=== PATIENT | male | born 1950 | race Caucasian/White ===

== ENCOUNTER 2019-10-29 11:53 | Emergency (ER) | payer MEDICARE, OTHER ==
--- NOTE | 2019-10-29 12:04 | EDM.PDOC ---
ED HPI GENERAL MEDICAL PROBLEM - General Stated Complaint: COPD SOB Time Seen by Provider: 10/29/19 12:03 Source of Information: Reports: Patient History Limitations: Reports: No Limitations - History of Present Illness INITIAL COMMENTS - FREE TEXT/NARRATIVE: 69-year-old male who reports onset with some shortness of breath and increased wheezing over the past 2-3 days. Yesterday, he developed generalized malaise with nausea and dry heaving and then developed diarrhea. He has had diarrhea 6- 7 today. He feels weak and short of breath today. He also continues to have generalized abdominal cramping associated with this diarrhea and dry heaving. He reports that several of his grandchildren had vomiting and diarrhea and he was exposed to them over the past few days. He rates the pain in his stomach as a 5/10. It is crampy and waxes and wanes. Nothing really seems to make it better. The pain is somewhat worse with palpation. He really has had no appetite and he has had decreased by mouth intake over the past 24 hours. He has had subjective fever with chills. He presents via private vehicle. No other associated signs or symptoms. There are no other modifying factors. 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 Treatments Generalized Pain Score (Numeric/FACES): 4 - Related Data Allergies Allergy/AdvReac Type Severity Reaction Status Date / Time No Known Allergies Allergy Verified 10/29/19 12:19 Home Meds: Home Meds Aspirin [[place] Aspirin] 81 mg PO DAILY 05/29/15 [History] Fenofibrate Nanocrystallized [Tricor] 134 mg PO DAILY 05/29/15 [History] Fish Oil/Heath-3 Fatty Acids [Fish Oil 1,000 MG] 1 each PO DAILY 05/29/15 [ History] Lisinopril [Prinivil] 20 mg PO DAILY 05/29/15 [History] Loratadine [Claritin] 10 mg PO DAILY 05/29/15 [History] Omeprazole [Prilosec] 20 mg PO DAILY 05/29/15 [History] amLODIPine [Norvasc] 5 mg PO DAILY 05/29/15 [History] atorvaSTATin [Lipitor] 40 mg PO BEDTIME 05/29/15 [History] rOPINIRole [Requip] 1 mg PO BEDTIME 05/29/15 [History] Albuterol/Ipratropium [DuoNeb 3.0-0.5 MG/3 ML] 1 ampule INH QID 09/09/16 [ History] Carvedilol [Coreg] 12.5 mg PO BID 09/09/16 [History] B-Complex with Vitamin C [Super B Complex-Vitamin C] 1 each PO DAILY 10/21/16 [ History] Clopidogrel [Plavix] 75 mg PO DAILY 10/21/16 [History] Melatonin 3 mg PO BEDTIME PRN 10/21/16 [History] Pioglitazone [Actos] 30 mg PO DAILY 10/21/16 [History] buPROPion HCl [Wellbutrin SR] 150 mg PO BID 10/21/16 [History] metFORMIN HCl [Metformin ER Osmotic] 1,000 mg PO DAILY 10/22/16 [History] Ciprofloxacin HCl [Cipro] 500 mg PO BID 3 Days tablet 06/01/17 [Rx] Ondansetron HCl [Zofran] 4 mg PO ASDIRECTED #6 tablet 06/01/17 [Rx] Past Medical History HEENT History: Reports: Hard of Hearing, Impaired Vision Cardiovascular History: Reports: High Cholesterol, Hypertension, [place], Stents Respiratory History: Reports: COPD, Sleep Apnea Gastrointestinal History: Reports: GERD Genitourinary History: Reports: BPH Musculoskeletal History: Reports: Back Pain, Chronic Neurological History: Reports: Migraines, Other (See Below) (Restless leg syndrome) Psychiatric History: Reports: Depression Endocrine/Metabolic History: Reports: Diabetes, Type II - Infectious Disease History Infectious Disease History: Reports: Rheumatic Fever - Past Surgical History HEENT Surgical History: Reports: Tonsillectomy Other HEENT Surgeries/Procedures: Broken jaw Cardiovascular Surgical History: Reports: Coronary Artery Stent, Percutaneous Transluminal Angioplasty GI Surgical History: Reports: Cholecystectomy Musculoskeletal Surgical History: Reports: Arthroscopic Knee (4 knee arthroscopies), Hip Replacement (Right), Shoulder Surgery (Left) Social & Family History - Family History Psychiatric: Reports: Depression - Tobacco Use Smoking Status *Q: Current Every Day Smoker - Caffeine Use Caffeine Use: Reports: Coffee Other Caffeine Use: pot to pot and half Caffeine Use Comment: verbalizes a whole lot more than should be - Alcohol Use Alcohol Use History: No - Living Situation & Occupation Occupation: Retired ED ROS GENERAL - Review of Systems Review Of Systems: See Below Constitutional: Reports: Fever, Chills, Malaise, Weakness, Fatigue HEENT: Reports: Other (Nasal congestion) Respiratory: Reports: Shortness of Breath, Wheezing, Cough Cardiovascular: Reports: No Symptoms GI/Abdominal: Reports: Abdominal Pain, Diarrhea, Nausea, Vomiting : Reports: No Symptoms Musculoskeletal: Reports: Other (Body aches throughout) Skin: Reports: No Symptoms Neurological: Reports: No Symptoms Hematologic/Lymphatic: Reports: No Symptoms Immunologic: Reports: No Symptoms ED EXAM, GENERAL - Physical Exam Exam: See Below Exam Limited By: No Limitations General Appearance: Alert, WD/WN, Moderate Distress (Mild to) Eye Exam: Bilateral Eye: EOMI, Normal Inspection Ears: Normal External Exam, Hearing Grossly Normal Ear Exam: Bilateral Ear: Auricle Normal Nose: No Blood, Nasal Drainage, Clear Rhinorrhea Throat/Mouth: Normal Voice, No Airway Compromise, Other (Somewhat dry mucous membranes) Head: Atraumatic, Normocephalic Neck: Normal Inspection, Supple, Non-Tender, Full Range of Motion Respiratory/Chest: No Accessory Muscle Use, Chest Non-Tender, Rhonchi Cardiovascular: Normal Peripheral Pulses, No Edema, No Murmur, Irregularly Irregular Peripheral Pulses: 0: Femoral (R), 2+: Radial (L), Radial (R), Dorsalis Pedis (L ), Dorsalis Pedis (R) GI/Abdominal: Normal Bowel Sounds, Soft, Non-Tender, No Distention (Male) Exam: No Hernia Back Exam: Normal Inspection, Full Range of Motion Extremities: Normal Inspection, Normal Range of Motion, Non-Tender, No Pedal Edema, Normal Capillary Refill Neurological: Alert, Oriented, CN II-XII Intact, Normal Cognition, No Motor/ Sensory Deficits Skin Exam: Warm, Dry, Intact, Normal Color, No Rash EKG INTERPRETATION EKG Date: 10/29/19 Time: 12:06 Rhythm: A-Fib Rate (Beats/Min): 102 [place]: LAD-Left [place] Deviation P-Wave: Absent QRS: Normal ST-T: Normal QT: Normal Comparison: Change From Previous EKG (Atrial fibrillation and left axis deviation are new compared to an EKG performed on 10/22/2016.) Course - Vital Signs Last Recorded V/S: Last Vital Signs Temp 37.7 C 10/29/19 11:53 Pulse 110 H 10/29/19 11:53 Resp 22 H 10/29/19 11:53 BP 140/80 10/29/19 11:53 Pulse Ox 98 10/29/19 11:53 - Orders/Labs/Meds Orders: Active Orders 24 hr Category Date Time Status EKG Documentation Completion [RC] ASDIRECTED Care 10/29/19 12:52 Active RT Aerosol Therapy [RC] ASDIRECTED Care 10/29/19 12:53 Active Chest 2V [CR] Stat Exams 10/29/19 12:51 Taken CULTURE BLOOD [BC] Urgent Lab 10/29/19 14:55 Received CULTURE BLOOD [BC] Urgent Lab 10/29/19 17:00 Received Sodium Chloride 0.9% [Normal Saline] 1,000 ml Med 10/29/19 14:45 Active IV ASDIRECTED Sodium Chloride 0.9% [Saline Flush] Med 10/29/19 12:51 Active 10 ml FLUSH ASDIRECTED PRN Blood Culture x2 Reflex Set [OM.PC] Urgent Oth 10/29/19 16:32 Ordered Peripheral IV Insertion Adult [OM.PC] Routine Oth 10/29/19 12:51 Ordered EKG 12 Lead [EK] Routine Ther 10/29/19 12:51 Ordered Medication Orders Sodium Chloride (Normal Saline) 1,000 mls @ 999 mls/hr IV ASDIRECTED LAURA Last Infusion: 10/29/19 15:00 Dose: 125 mls/hr Admin: 10/29/19 14:32 Dose: 999 mls/hr Sodium Chloride (Saline Flush) 10 ml FLUSH ASDIRECTED PRN PRN Reason: Keep Vein Open Labs: Laboratory Tests 10/29/19 10/29/19 10/29/19 Range/Units 13:05 13:05 13:05 WBC 10.6 (4.5-12.0) X10-3/uL RBC 5.17 (4.30-5.75) x10(6)uL Hgb 14.7 (13.5-17.8) g/dL Hct 44.2 (30.0-51.3) % MCV 85.5 (80-96) fL MCH 28.5 (27.7-33.6) pg MCHC 33.3 (32.2-35.4) g/dL RDW 13.5 (11.5-15.5) % Plt Count 216 (125-369) X10(3)uL MPV 9.1 (7.4-10.4) fL Neut % (Auto) 76.3 (46-82) % Lymph % (Auto) 8.9 L (13-37) % [place] % (Auto) 12.2 H (4-12) % Eos % (Auto) 0 L (1.0-5.0) % Baso % (Auto) 2 (0-2) % Neut # (Auto) 8.2 (1.6-8.3) # Lymph # (Auto) 0.9 (0.6-5.0) # [place] # (Auto) 1.3 (0.0-1.3) # Eos # (Auto) 0.0 (0.0-0.8) # Baso # (Auto) 0.2 (0.0-0.2) # PT 10.6 (8.7-11.1) INR 1.09 (0.89-1.13) APTT 24.6 (24.4-33.2) SECONDS POC VBG pH (7.31-7.41) POC VBG pCO2 (41-51) mmHG POC VBG HCO3 (23-28) mmol/L POC VBG Total CO2 (24-29) mmol/L POC VBG Base Excess (-2-3) mmol/L Sodium 138 (135-145) mmol/L Potassium 4.0 (3.5-5.3) mmol/L Chloride 103 (100-110) mmol/L Carbon Dioxide 23 (21-32) mmol/L BUN 26 H (7-18) mg/dL Creatinine 1.6 H (0.70-1.30) mg/dL Est Cr Clr Drug Dosing TNP Estimated GFR (MDRD) 43 L (>60) BUN/Creatinine Ratio 16.3 (9-20) Glucose 170 H (80-116) mg/dL Lactic Acid (0.4-2.2) mmol/L Calcium 9.2 (8.6-10.2) mg/dL Magnesium (1.8-2.5) mg/dL Total Bilirubin 0.6 (0.1-1.3) mg/dL AST 19 (5-25) IU/L ALT 22 (12-36) U/L Alkaline Phosphatase 61 (56-112) IU/L Troponin I (<0.017-0.056) ng/mL C-Reactive Protein (0.5-0.9) mg/dL NT-Pro-B Natriuret Pep (<=125) pg/mL Total Protein 7.1 (6.0-8.0) g/dL Albumin 3.8 (3.2-4.6) g/dL Globulin 3.3 g/dL Albumin/Globulin Ratio 1.2 10/29/19 10/29/19 10/29/19 Range/Units 13:05 13:11 13:31 WBC (4.5-12.0) X10-3/uL RBC (4.30-5.75) x10(6)uL Hgb (13.5-17.8) g/dL Hct (30.0-51.3) % MCV (80-96) fL MCH (27.7-33.6) pg MCHC (32.2-35.4) g/dL RDW (11.5-15.5) % Plt Count (125-369) X10(3)uL MPV (7.4-10.4) fL Neut % (Auto) (46-82) % Lymph % (Auto) (13-37) % [place] % (Auto) (4-12) % Eos % (Auto) (1.0-5.0) % Baso % (Auto) (0-2) % Neut # (Auto) (1.6-8.3) # Lymph # (Auto) (0.6-5.0) # [place] # (Auto) (0.0-1.3) # Eos # (Auto) (0.0-0.8) # Baso # (Auto) (0.0-0.2) # PT (8.7-11.1) INR (0.89-1.13) APTT (24.4-33.2) SECONDS POC VBG pH 7.41 (7.31-7.41) POC VBG pCO2 33.0 L (41-51) mmHG POC VBG HCO3 21.0 L (23-28) mmol/L POC VBG Total CO2 22 L (24-29) mmol/L POC VBG Base Excess -4 L (-2-3) mmol/L Sodium (135-145) mmol/L Potassium (3.5-5.3) mmol/L Chloride (100-110) mmol/L Carbon Dioxide (21-32) mmol/L BUN (7-18) mg/dL Creatinine (0.70-1.30) mg/dL Est Cr Clr Drug Dosing Estimated GFR (MDRD) (>60) BUN/Creatinine Ratio (9-20) Glucose (80-116) mg/dL Lactic Acid (0.4-2.2) mmol/L Calcium (8.6-10.2) mg/dL Magnesium 1.7 L (1.8-2.5) mg/dL Total Bilirubin (0.1-1.3) mg/dL AST (5-25) IU/L ALT (12-36) U/L Alkaline Phosphatase (56-112) IU/L Troponin I < 0.017 L (<0.017-0.056) ng/mL C-Reactive Protein 2.3 H (0.5-0.9) mg/dL NT-Pro-B Natriuret Pep 1368 H* (<=125) pg/mL Total Protein (6.0-8.0) g/dL Albumin (3.2-4.6) g/dL Globulin g/dL Albumin/Globulin Ratio 10/29/ Range/Units 13:31 WBC (4.5-12.0) X10-3/uL RBC (4.30-5.75) x10(6)uL Hgb (13.5-17.8) g/dL Hct (30.0-51.3) % MCV (80-96) fL MCH (27.7-33.6) pg MCHC (32.2-35.4) g/dL RDW (11.5-15.5) % Plt Count (125-369) X10(3)uL MPV (7.4-10.4) fL Neut % (Auto) (46-82) % Lymph % (Auto) (13-37) % [place] % (Auto) (4-12) % Eos % (Auto) (1.0-5.0) % Baso % (Auto) (0-2) % Neut # (Auto) (1.6-8.3) # Lymph # (Auto) (0.6-5.0) # [place] # (Auto) (0.0-1.3) # Eos # (Auto) (0.0-0.8) # Baso # (Auto) (0.0-0.2) # PT (8.7-11.1) INR (0.89-1.13) APTT (24.4-33.2) SECONDS POC VBG pH (7.31-7.41) POC VBG pCO2 (41-51) mmHG POC VBG HCO3 (23-28) mmol/L POC VBG Total CO2 (24-29) mmol/L POC VBG Base Excess (-2-3) mmol/L Sodium (135-145) mmol/L Potassium (3.5-5.3) mmol/L Chloride (100-110) mmol/L Carbon Dioxide (21-32) mmol/L BUN (7-18) mg/dL Creatinine (0.70-1.30) mg/dL Est Cr Clr Drug Dosing Estimated GFR (MDRD) (>60) BUN/Creatinine Ratio (9-20) Glucose (80-116) mg/dL Lactic Acid 1.0 (0.4-2.2) mmol/L Calcium (8.6-10.2) mg/dL Magnesium (1.8-2.5) mg/dL Total Bilirubin (0.1-1.3) mg/dL AST (5-25) IU/L ALT (12-36) U/L Alkaline Phosphatase (56-112) IU/L Troponin I (<0.017-0.056) ng/mL C-Reactive Protein (0.5-0.9) mg/dL NT-Pro-B Natriuret Pep (<=125) pg/mL Total Protein (6.0-8.0) g/dL Albumin (3.2-4.6) g/dL Globulin g/dL Albumin/Globulin Ratio Meds: Medications Generic Name Dose Route Start Last Admin Trade Name Freq PRN Reason Stop Dose Admin Sodium Chloride 1,000 mls @ 999 mls/hr 10/29/19 14:45 10/29/19 15:00 Normal Saline IV 125 mls/hr ASDIRECTED LAURA Infusion Sodium Chloride 10 ml 10/29/19 12:51 Saline Flush FLUSH ASDIRECTED PRN Keep Vein Open Discontinued Medications Generic Name Dose Route Start Last Admin Trade Name Freq PRN Reason Stop Dose Admin Acetaminophen 1,000 mg 10/29/19 12:58 10/29/19 13:30 Tylenol Extra Strength PO 10/29/19 12:59 1,000 mg ONETIME ONE Administration Albuterol/Ipratropium 3 ml 10/29/19 12:53 10/29/19 13:01 Duoneb 3.0-0.5 Mg/3 Ml NEB 10/29/19 12:54 3 ml ONETIME ONE Administration Ceftriaxone Sodium 1 gm 10/29/19 16:33 10/29/19 17:17 Rocephin IVPUSH 10/29/19 16:34 1 gm ONETIME ONE Administration Gabapentin 600 mg 10/29/19 17:14 10/29/19 17:30 Neurontin PO 10/29/19 17:15 600 mg ONETIME ONE Administration Magnesium Sulfate 2 gm/ Premix 50 mls @ 150 mls/hr 10/29/19 14:12 10/29/19 14 :33 IV 10/29/19 14:31 150 mls/hr ONETIME ONE Administration Azithromycin 500 mg/ Sodium 250 mls @ 250 mls/hr 10/29/19 16:32 10/29/19 17: 17 Chloride IV 10/29/19 17:31 250 mls/hr ONETIME ONE Administration Methylprednisolone Sodium Succinate 125 mg 10/29/19 14:12 10/29/19 14:34 Solu-Medrol IVPUSH 10/29/19 14:13 125 mg ONETIME ONE Administration Ondansetron HCl 4 mg 10/29/19 13:00 10/29/19 13:30 Zofran IVPUSH 10/29/19 13:01 4 mg ONETIME ONE Administration - Radiology Interpretation Free Text/Narrative:: Chest x-ray PA and lateral shows evidence of COPD but no infiltrate no evidence of CHF. - Re-Assessments/Exams Free Text/Narrative Re-Assessment/Exam: 10/29/19 14:45: His blood pressure is in the 80-90 systolic range. His heart rate is in the 100-110 range and is now in sinus rhythm. He is somewhat improved , breathing-krishnamurthy, after the DuoNeb treatment. His abdominal pain/cramping has improved after Zofran was given. He has had no further diarrhea while here. There has been no further vomiting. He did have an episode of ventricular tachycardia that lasted for about 5-10 seconds in which the patient was completely asymptomatic without chest pain, dizziness, weakness or shortness of breath increased. His proBNP was somewhat elevated but he actually appears to be volume depleted/dehydrated and I think he will need IV fluid hydration. He appears to have exacerbation of his COPD. He also has had paroxysmal atrial fibrillation. In addition he appears to be dehydrated related to what I suspect is a gastroenteritis that is viral in etiology. With all of this, I think he will need admission for the fluid hydration, IV antibiotics, frequent nebulizer treatments, IV steroids and close cardiac monitoring. I discussed this with the patient and his daughter and they would him to be transferred to [facility] in [place]. There are no cardiology specially services available here at [facility] and I think that the patient may need these cardiology specialty services and cardiology consult and transfer would be appropriate in this case. I will call and discussed the patient's case with the doctors at [facility] in [place]. 10/29/19 15:15: Initially I had made contact with [facility] in [place] and I was awaiting talking to the hospitalist at [facility] [place] and I had to hang up at this time secondary to an incoming critical patient. 10/29/19 16:25: I discussed the patient's case with Dr. Waters, hospitalist at [facility] in [place], and he has agreed to accept the patient in transfer. He asked that I have 2 blood cultures obtained and that I initiate therapy with Rocephin and Zithromax IV. That is being ordered and the patient will be transferred via ambulance to [facility] in [place] for direct admission. The patient and his family are in agreement with this plan. Departure - Departure Time of Disposition: 17:00 Disposition: DC/Tfer to Acute Hospital 02 Condition: Fair Clinical Impression: COPD with acute exacerbation, Paroxysmal atrial fibrillation, Dehydration, moderate, Vomiting and diarrhea, Ventricular tachycardia (paroxysmal) - Discharge Information Referrals: Xu Duggan PA-C [Primary Care Provider] - Sepsis Event Note - Focused Exam Vital Signs: Vital Signs Temp Pulse Resp BP Pulse Ox 10/29/19 11:53 37.7 C 110 H 22 H 140/80 98 Date Exam was Performed: 10/29/19 Time Exam was Performed: 22:40 - My Orders Last 24 Hours: My Active Orders 10/29/19 12:51 Chest 2V [CR] Stat Sodium Chloride 0.9% [Saline Flush] 10 ml FLUSH ASDIRECTED PRN Peripheral IV Insertion Adult [OM.PC] Routine EKG 12 Lead [EK] Routine 10/29/19 12:52 EKG Documentation Completion [RC] ASDIRECTED 10/29/19 12:53 RT Aerosol Therapy [RC] ASDIRECTED 10/29/19 14:45 Sodium Chloride 0.9% [Normal Saline] 1,000 ml IV ASDIRECTED 10/29/19 14:55 CULTURE BLOOD [BC] Urgent 10/29/19 16:32 Blood Culture x2 Reflex Set [OM.PC] Urgent 10/29/19 17:00 CULTURE BLOOD [BC] Urgent - Assessment/Plan Last 24 Hours: My Active Orders 10/29/19 12:51 Chest 2V [CR] Stat Sodium Chloride 0.9% [Saline Flush] 10 ml FLUSH ASDIRECTED PRN Peripheral IV Insertion Adult [OM.PC] Routine EKG 12 Lead [EK] Routine 10/29/19 12:52 EKG Documentation Completion [RC] ASDIRECTED 10/29/19 12:53 RT Aerosol Therapy [RC] ASDIRECTED 10/29/19 14:45 Sodium Chloride 0.9% [Normal Saline] 1,000 ml IV ASDIRECTED 10/29/19 14:55 CULTURE BLOOD [BC] Urgent 10/29/19 16:32 Blood Culture x2 Reflex Set [OM.PC] Urgent 10/29/19 17:00 CULTURE BLOOD [BC] Urgent
[2019-10-29] MEDS ORDERED: Sodium Chloride 0.9% 10 ML Syringe FLUSH PRN (12:51)
[2019-10-29] MEDS ORDERED: Albuterol/Ipratropium 3.0-0.5 MG/3 ML Neb Soln NEB ONE (12:53)
[2019-10-29] MEDS ORDERED: Acetaminophen 500 MG Tab PO ONE (12:58)
[2019-10-29] MEDS ORDERED: Ondansetron 4 MG/2 ML SDV IVPUSH ONE (13:00)
[2019-10-29 14:06] VITALS: BP 140/80
[2019-10-29] MEDS ORDERED: Magnesium Sulfate/Water 2 GM in Premix Bag 1 BAG IV ONE (14:12)
[2019-10-29] MEDS ORDERED: methylPREDNISolone Sodium Succinate 125 MG/2 ML SDV IVPUSH ONE (14:12)
[2019-10-29] MEDS ORDERED: Sodium Chloride 0.9% 1,000 ML IV SCH (14:45)
[2019-10-29] MEDS ORDERED: Azithromycin 500 MG in Sodium Chloride 0.9% 250 ML IV ONE (16:32)
[2019-10-29] MEDS ORDERED: cefTRIAXone 1 GM Vial IVPUSH ONE (16:33)
[2019-10-29] MEDS ORDERED: Gabapentin 300 MG Cap PO ONE (17:14)
[2019-10-30 00:14] VITALS: PULSE 88
== END 2019-10-29 17:35 ==
LOC: FB.ED 11:53
DX: J44.1 Chronic obstructive pulmonary disease with (acute) exacerbation (principal); I48.0 Paroxysmal atrial fibrillation; I47.2 Ventricular tachycardia; E86.0 Dehydration; R11.10 Vomiting, unspecified; R19.7 Diarrhea, unspecified; I10 Essential (primary) hypertension; F17.210 Nicotine dependence, cigarettes, uncomplicated; I25.2 Old myocardial infarction; Z79.899 Other long term (current) drug therapy; E11.9 Type 2 diabetes mellitus without complications; Z79.82 Long term (current) use of aspirin
CPT/HCPCS: 36415; 71046; 80053; 82803; 83605; 83735; 83880; 84484; 85025; 85610; 85730; 86140; 87040; 87804; 87804-59; 93005; 93010; 94640; 96361; 96365; 96375; 99285; 99285-25; A9270-GY; J0456; J0696; J2405; J2930; J3475; J7030; J7050; J7620-GY

== ENCOUNTER 2021-12-14 19:50 | Emergency (ER) | payer MEDICARE, OTHER ==
[2021-12-14] MEDS ORDERED: Albuterol/Ipratropium 3.0-0.5 MG/3 ML Neb Soln NEB ONE (20:15)
[2021-12-14] MEDS ORDERED: Sodium Chloride 0.9% 10 ML Syringe FLUSH PRN (20:15)
[2021-12-14] MEDS ORDERED: methylPREDNISolone Sodium Succinate 125 MG/2 ML SDV IVPUSH STA (20:16)
[2021-12-14 20:38] VITALS: BP 140/73; PULSE 82
[2021-12-14] MEDS ORDERED: Azithromycin 500 MG Tab PO ONE (22:04)
== END 2021-12-14 22:22 | disposition home or self-care (01) ==
LOC: FB.ED 19:50
DX: J44.9 Chronic obstructive pulmonary disease, unspecified (principal); I48.91 Unspecified atrial fibrillation; E78.00 Pure hypercholesterolemia, unspecified; I10 Essential (primary) hypertension; I25.2 Old myocardial infarction; E11.40 Type 2 diabetes mellitus with diabetic neuropathy, unspecified; N40.0 Benign prostatic hyperplasia without lower urinary tract symptoms; E66.9 Obesity, unspecified; Z68.39 Body mass index [BMI] 39.0-39.9, adult; Z95.5 Presence of coronary angioplasty implant and graft; Z79.4 Long term (current) use of insulin; Z79.899 Other long term (current) drug therapy; Z72.0 Tobacco use; Z79.82 Long term (current) use of aspirin; Z79.01 Long term (current) use of anticoagulants; Z20.822 Contact with and (suspected) exposure to COVID-19
CPT/HCPCS: 36415; 71045; 80053; 83880; 84484; 85025; 93005; 94640; 96374; 99285; A9270; J2930; U0002; J7620-GY

== ENCOUNTER 2023-03-05 21:59 | Observation (INO) | payer MEDICARE, OTHER ==
[2023-03-05] MEDS ORDERED: Sodium Chloride 0.9% 10 ML Syringe FLUSH PRN (22:26)
[2023-03-05 23:01] LABS: ESTIMATED GFR 40 mL/min (>60)
[2023-03-05] MEDS ORDERED: methylPREDNISolone Sodium Succinate 125 MG/2 ML SDV IVPUSH ONE (23:04)
[2023-03-05] MEDS ORDERED: Albuterol/Ipratropium 3.0-0.5 MG/3 ML Neb Soln NEB ONE (23:04)
[2023-03-05 23:08] LABS: BASE EXCESS VENOUS,POC 1 mmol/L (-2 - 3+); PCO2 VENOUS,POC 42 mmHg (41-51)
[2023-03-05] MEDS ORDERED: Magnesium Sulfate/Water 2 GM in Premix Bag 1 BAG IV ONE (23:27)
[2023-03-05 23:50] LABS: CORONAVIRUS COVID-19 NAA NEGATIVE (NEGATIVE)
[2023-03-06] MEDS ORDERED: Ondansetron 4 MG/2 ML SDV IV PRN (00:39)
[2023-03-06] MEDS ORDERED: Acetaminophen 325 MG Tab PO PRN (00:39)
[2023-03-06] MEDS ORDERED: Albuterol 0.083% 2.5 MG/3 ML Neb Soln NEB PRN (00:47)
[2023-03-06] MEDS ORDERED: Furosemide 40 MG/4 ML VIAL IVPUSH ONE (00:52)
[2023-03-06] MEDS ORDERED: 50% Dextrose in Water 50 ML Syringe IVPUSH PRN (00:55)
[2023-03-06] MEDS ORDERED: Glucagon,Human Recombinant 1 MG Vial IM PRN (00:55)
[2023-03-06] MEDS ORDERED: Apixaban 5 MG Tab PO ONE (01:00)
[2023-03-06] MEDS ORDERED: cefTRIAXone 1 GM Vial IVPUSH SCH (01:00)
[2023-03-06] MEDS ORDERED: Doxycycline 100 MG in Sodium Chloride 0.9% 100 ML IV SCH ×2 (01:00→14:00)
[2023-03-06] MEDS: Nicotine 14 MG/24 Hr Patch TRDERM SCH ×2 (01:51→08:22)
[2023-03-06] MEDS: Sodium Chloride 0.9% 10 ML Syringe FLUSH PRN ×2 (01:56→08:34)
[2023-03-06] MEDS: Apixaban 5 MG Tab **OWN MED PO SCH ×2 (02:00→08:27)
[2023-03-06] MEDS: Pantoprazole 40 MG Vial IVPUSH SCH ×2 (02:05→08:27)
[2023-03-06] MEDS: Albuterol/Ipratropium 3.0-0.5 MG/3 ML Neb Soln NEB SCH ×2 (06:00→11:21)
[2023-03-06] MEDS ORDERED: Insulin Lispro 100 Unit/ML 3 ML KwikPen SUBCUT ONE (08:17)
[2023-03-06] MEDS: Insulin Lispro 100 Unit/ML 3 ML KwikPen SUBCUT SCH ×2 (08:20→11:59)
[2023-03-06] MEDS ORDERED: methylPREDNISolone Sodium Succinate 40 MG/1 ML SDV IVPUSH SCH (11:30)
[2023-03-06 13:04] VITALS: BP 105/49; PULSE 105
== END 2023-03-06 14:00 | disposition home or self-care (01) ==
LOC: FB.ED 21:59 → FB.MS 03-06 00:33
PROVIDERS: ADMIT Emergency Medicine; ATTEND Student in an Organized Health Care Education/Training Program
DX: J44.1 Chronic obstructive pulmonary disease with (acute) exacerbation (principal); I48.0 Paroxysmal atrial fibrillation; E11.22 Type 2 diabetes mellitus with diabetic chronic kidney disease; I13.0 Hypertensive heart and chronic kidney disease with heart failure and stage 1 through stage 4 chronic kidney disease, or unspecified chronic kidney disease; N18.31 Chronic kidney disease, stage 3a; I50.9 Heart failure, unspecified; I47.20 Ventricular tachycardia, unspecified; M54.9 Dorsalgia, unspecified; G47.33 Obstructive sleep apnea (adult) (pediatric); G89.29 Other chronic pain; M19.90 Unspecified osteoarthritis, unspecified site; E66.01 Morbid (severe) obesity due to excess calories; Z20.822 Contact with and (suspected) exposure to COVID-19; Z79.4 Long term (current) use of insulin; Z79.82 Long term (current) use of aspirin; Z79.899 Other long term (current) drug therapy; Z68.41 Body mass index [BMI] 40.0-44.9, adult
CPT/HCPCS: 0240U; 36415; 71045; 80053; 82947; 83605; 83735; 83880; 84484; 85025; 86140; 87040; 93005; 93010; 94640; 96365; 96366; 96367; 96375; 96376; 99222; 99285; 99285-25; A9270-GY; C9113; G0378; J0696; J1815; J1940; J2920; J2930; J3475; J3490; J7620

== ENCOUNTER 2023-04-02 22:59 | Emergency (ER) | payer MEDICARE, OTHER ==
[2023-04-02 23:13] VITALS: BP 130/52; PULSE 72
== END 2023-04-02 23:23 | disposition home or self-care (01) ==
LOC: FB.ED 22:59
DX: S05.01XA Injury of conjunctiva and corneal abrasion without foreign body, right eye, initial encounter (principal); I48.91 Unspecified atrial fibrillation; I11.0 Hypertensive heart disease with heart failure; I50.9 Heart failure, unspecified; E78.00 Pure hypercholesterolemia, unspecified; J44.9 Chronic obstructive pulmonary disease, unspecified; I25.2 Old myocardial infarction; E11.9 Type 2 diabetes mellitus without complications; K21.9 Gastro-esophageal reflux disease without esophagitis; E66.9 Obesity, unspecified; Z68.42 Body mass index [BMI] 45.0-49.9, adult; Z79.82 Long term (current) use of aspirin; Z79.899 Other long term (current) drug therapy; W22.8XXA Striking against or struck by other objects, initial encounter
CPT/HCPCS: 99283

== ENCOUNTER 2023-06-05 03:58 | Emergency (ER) | payer MEDICARE, OTHER ==
[2023-06-05] MEDS ORDERED: Sodium Chloride 0.9% 10 ML Syringe FLUSH PRN (04:17)
[2023-06-05 04:45] LABS: BASE EXCESS VENOUS,POC 5 mmol/L (-2 - 3+); PCO2 VENOUS,POC 62 mmHg (41-51); PH VENOUS,POC 7.33 pH Units (7.32-7.43)
[2023-06-05 05:04] LABS: BASOPHILS ABSOLUTE AUTO 0.1 x10-3/uL (0.0-0.3); BASOPHILS PERCENT AUTO 1.3 % (0.3-3.8); EOSINOPHILS ABSOLUTE AUTO 0.3 x10-3/uL (0.0-0.6); EOSINOPHILS PERCENT AUTO 2.9 % (0.1-6.8); HEMATOCRIT 37.2 % (38.3-50.1); HEMOGLOBIN 12.3 g/dL (12.9-17.7); LYMPHOCYTES ABSOLUTE AUTO 1.7 x10-3/uL (0.5-4.5); LYMPHOCYTES PERCENT AUTO 18.7 % (15.8-45.3); MEAN CORPUSCULAR HEMOGLOBIN 28.8 pg (27.0-33.3); MEAN CORPUSCULAR HGB CONC 33.1 g/dL (28.7-35.3); MEAN CORPUSCULAR VOLUME 87.1 fL (80.8-98.7); MEAN PLATELET VOLUME 8.8 fL (6.7-11.0); MONOCYTES ABSOLUTE AUTO 1.2 x10-3/uL (0.0-1.2); MONOCYTES PERCENT AUTO 12.7 % (5.5-15.2); NEUTROPHILS ABSOLUTE AUTO 5.9 x10-3/uL (1.7-6.9); NEUTROPHILS PERCENT AUTO 64.4 % (40.3-71.8); PLATELET COUNT,PLT 208 x10(3)uL (117-477); RED BLOOD CELL COUNT 4.27 x10(6)uL (3.90-5.90); RED CELL DISTRIBUTION WIDTH 15.4 % (12.4-15.0); WHITE BLOOD CELL COUNT,WBC 9.1 x10-3/uL (3.2-10.1)
[2023-06-05 05:07] LABS: A/G RATIO 0.9; ALANINE AMINOTRANSFERASE,ALT 21 U/L (12-36); ALBUMIN 3.3 g/dL (3.2-4.6); ALKALINE PHOSPHATASE 52 IU/L (56-112); ASPARTATE AMNIOTRANSFERASE,AST 18 IU/L (5-25); BILIRUBIN TOTAL 0.3 mg/dL (0.1-1.3); BLOOD UREA NITROGEN,BUN 24 mg/dL (7-18); CARBON DIOXIDE,CO2 33 mmol/L (21-32); CHLORIDE,CL 102 mmol/L (100-110); GLUCOSE RANDOM 118 mg/dL (80-116); POTASSIUM,K 4.2 mmol/L (3.5-5.3); PROTEIN TOTAL,TP 6.9 g/dL (6.0-8.0); SODIUM,NA 141 mmol/L (135-145)
[2023-06-05 05:10] LABS: BUN/CREATININE RATIO 12.6 (9-20); CREATININE 1.9 mg/dL (0.70-1.30); ESTIMATED GFR 37 mL/min (>60)
[2023-06-05 05:11] LABS: LACTIC ACID 0.7 mmol/L (0.4-2.0); TROPONIN I 9.4 pg/mL (4.0-60.3)
[2023-06-05 05:16] LABS: INR 1.04 (1.00-1.24); PROTHROMBIN TIME 10.7 sec (9.0-11.1); PTT,PARTIAL THROMBOPLSTIN TIME 27.7 SECONDS (24.4-33.2)
[2023-06-05] MEDS ORDERED: methylPREDNISolone Sodium Succinate 125 MG/2 ML SDV IVPUSH STA (05:29)
[2023-06-05] MEDS ORDERED: Albuterol/Ipratropium 3.0-0.5 MG/3 ML Neb Soln NEB STA (05:29)
[2023-06-05 06:50] VITALS: BP 146/78; PULSE 64
== END 2023-06-05 06:40 | disposition home or self-care (01) ==
LOC: FB.ED 03:58
DX: J44.1 Chronic obstructive pulmonary disease with (acute) exacerbation (principal); L03.115 Cellulitis of right lower limb; I48.91 Unspecified atrial fibrillation; I11.0 Hypertensive heart disease with heart failure; I50.9 Heart failure, unspecified; I25.2 Old myocardial infarction; K21.9 Gastro-esophageal reflux disease without esophagitis; E78.00 Pure hypercholesterolemia, unspecified; M19.90 Unspecified osteoarthritis, unspecified site; E11.40 Type 2 diabetes mellitus with diabetic neuropathy, unspecified; E66.9 Obesity, unspecified; Z68.42 Body mass index [BMI] 45.0-49.9, adult; Z79.01 Long term (current) use of anticoagulants; Z79.82 Long term (current) use of aspirin; Z79.899 Other long term (current) drug therapy; Z79.4 Long term (current) use of insulin
CPT/HCPCS: 36415; 71045; 80053; 83605; 83880; 84484; 85025; 85610; 85730; 93005; 96374; 99285; J2930; J7620

== ENCOUNTER 2023-08-27 12:42 | Emergency (ER) | payer MEDICARE, OTHER ==
[2023-08-27] MEDS ORDERED: rOPINIRole 0.5 MG Tab PO STA (13:09)
[2023-08-27] MEDS ORDERED: ClonazePAM 0.5 MG Tab PO ONE (13:09)
[2023-08-27] MEDS ORDERED: Ondansetron 4 MG/2 ML SDV ONE (13:11)
[2023-08-27] MEDS ORDERED: Ondansetron 4 MG/2 ML SDV IVPUSH ONE (13:11)
[2023-08-27] MEDS ORDERED: Sodium Chloride 0.9% 10 ML Syringe FLUSH PRN (13:12)
[2023-08-27 13:21] LABS: HEMATOCRIT 38.7 % (38.3-50.1); HEMOGLOBIN 12.8 g/dL (12.9-17.7); MEAN CORPUSCULAR HEMOGLOBIN 28.8 pg (27.0-33.3); MEAN CORPUSCULAR HGB CONC 33.1 g/dL (28.7-35.3); MEAN CORPUSCULAR VOLUME 86.9 fL (80.8-98.7); MEAN PLATELET VOLUME 8.6 fL (6.7-11.0); PLATELET COUNT,PLT 255 x10(3)uL (117-477); RED BLOOD CELL COUNT 4.45 x10(6)uL (3.90-5.90); WHITE BLOOD CELL COUNT,WBC 9.8 x10-3/uL (3.2-10.1)
[2023-08-27 13:23] LABS: BLOOD UREA NITROGEN,BUN 28 mg/dL (7-18); BUN/CREATININE RATIO 17.5 (9-20); CALCIUM 9.2 mg/dL (8.6-10.2); CARBON DIOXIDE,CO2 29 mmol/L (21-32); CHLORIDE,CL 103 mmol/L (100-110); CREATININE 1.6 mg/dL (0.70-1.30); ESTIMATED GFR 45 mL/min (>60); GLUCOSE RANDOM 137 mg/dL (80-116); POTASSIUM,K 3.7 mmol/L (3.5-5.3); SODIUM,NA 137 mmol/L (135-145)
[2023-08-27 13:29] LABS: A/G RATIO 0.8; ALANINE AMINOTRANSFERASE,ALT 20 U/L (12-36); ALBUMIN 3.2 g/dL (3.2-4.6); ALKALINE PHOSPHATASE 39 IU/L (56-112); ASPARTATE AMNIOTRANSFERASE,AST 20 IU/L (5-25); BILIRUBIN TOTAL 0.5 mg/dL (0.1-1.3); PROTEIN TOTAL,TP 7.2 g/dL (6.0-8.0)
[2023-08-27 13:37] LABS: TROPONIN I 13.8 pg/mL (4.0-60.3)
[2023-08-27 13:38] LABS: LYMPHOCYTES PERCENT MAN 6 % (13-37); MONOCYTES PERCENT MAN 8 % (4-12); SEG NEUTROPHILS PERCENT MAN 86 % (46-82)
[2023-08-27] MEDS ORDERED: Sodium Chloride 0.9% 500 ML IV ONE (13:48)
[2023-08-27 13:58] LABS: CORONAVIRUS COVID-19 NAA NEGATIVE (NEGATIVE); INFLUENZA A NAA NEGATIVE (NEGATIVE); INFLUENZA B NAA NEGATIVE (NEGATIVE)
[2023-08-27] MEDS ORDERED: Sodium Chloride 0.9% 1,000 ML IV SCH (14:00)
[2023-08-27] MEDS ORDERED: Albuterol/Ipratropium 3.0-0.5 MG/3 ML Neb Soln NEB ONE (14:07)
[2023-08-27] MEDS ORDERED: methylPREDNISolone Sodium Succinate 125 MG/2 ML SDV IVPUSH ONE (14:07)
[2023-08-27] MEDS ORDERED: Sodium Chloride 0.9% 250 ML IV SCH (14:15)
[2023-08-27] MEDS ORDERED: LORazepam 2 MG/ML SDV IVPUSH ONE ×2 (15:37→15:50)
[2023-08-27] MEDS ORDERED: Gabapentin 600 MG Tab PO STA (15:38)
[2023-08-27] MEDS ORDERED: Sulfamethoxazole/Trimethoprim 800-160 MG Tab PO ONE (15:47)
[2023-08-27] MEDS ORDERED: Gabapentin 300 MG Cap ONE (15:58)
[2023-08-27] MEDS ORDERED: Gabapentin 300 MG Cap PO ONE (16:00)
[2023-08-27 19:22] VITALS: BP 118/76
[2023-08-27 19:38] VITALS: PULSE 95
== END 2023-08-27 19:10 | disposition home or self-care (01) ==
LOC: FB.ED 12:42
DX: J44.1 Chronic obstructive pulmonary disease with (acute) exacerbation (principal); I11.0 Hypertensive heart disease with heart failure; I50.9 Heart failure, unspecified; E78.00 Pure hypercholesterolemia, unspecified; I25.2 Old myocardial infarction; G47.30 Sleep apnea, unspecified; I48.91 Unspecified atrial fibrillation; E11.9 Type 2 diabetes mellitus without complications; E66.9 Obesity, unspecified; Z68.41 Body mass index [BMI] 40.0-44.9, adult; Z20.822 Contact with and (suspected) exposure to COVID-19; Z79.4 Long term (current) use of insulin; Z79.01 Long term (current) use of anticoagulants; Z79.82 Long term (current) use of aspirin; Z79.899 Other long term (current) drug therapy
CPT/HCPCS: 0240U; 36415; 71045; 80053; 83605; 83880; 84484; 85025; 87040; 93005; 94640; 96361; 96374; 96375; 99285-25; A9270-GY; J2060; J2405; J2930; J3490; J7050; J7620

== ENCOUNTER 2024-04-16 15:33 | Emergency (ER) | payer MEDICARE, OTHER ==
[2024-04-16 15:39] VITALS: BP 145/64; PULSE 84
[2024-04-16 16:40] LABS: BASOPHILS ABSOLUTE AUTO 0.1 x10-3/uL (0.0-0.3); BASOPHILS PERCENT AUTO 1.1 % (0.3-3.8); BLOOD UREA NITROGEN,BUN 27 mg/dL (7-18); BUN/CREATININE RATIO 15.9 (9-20); CALCIUM 9.2 mg/dL (8.6-10.2); CARBON DIOXIDE,CO2 29 mmol/L (21-32); CHLORIDE,CL 103 mmol/L (100-110); CREATININE 1.7 mg/dL (0.70-1.30); EOSINOPHILS ABSOLUTE AUTO 0.2 x10-3/uL (0.0-0.6); EOSINOPHILS PERCENT AUTO 2.3 % (0.1-6.8); ESTIMATED GFR 42 mL/min (>60); GLUCOSE RANDOM 91 mg/dL (80-116); HEMATOCRIT 35.5 % (38.3-50.1); HEMOGLOBIN 11.3 g/dL (12.9-17.7); LYMPHOCYTES ABSOLUTE AUTO 1.2 x10-3/uL (0.5-4.5); LYMPHOCYTES PERCENT AUTO 12.8 % (15.8-45.3); MEAN CORPUSCULAR HEMOGLOBIN 27.9 pg (27.0-33.3); MEAN CORPUSCULAR HGB CONC 31.8 g/dL (28.7-35.3); MEAN CORPUSCULAR VOLUME 87.6 fL (80.8-98.7); MEAN PLATELET VOLUME 8.4 fL (6.7-11.0); MONOCYTES PERCENT AUTO 10.4 % (5.5-15.2); NEUTROPHILS ABSOLUTE AUTO 6.9 x10-3/uL (1.7-6.9); NEUTROPHILS PERCENT AUTO 73.4 % (40.3-71.8); PLATELET COUNT,PLT 248 x10(3)uL (117-477); POTASSIUM,K 4.8 mmol/L (3.5-5.3); RED BLOOD CELL COUNT 4.05 x10(6)uL (3.90-5.90); RED CELL DISTRIBUTION WIDTH 14.5 % (12.4-15.0); SODIUM,NA 140 mmol/L (135-145); WHITE BLOOD CELL COUNT,WBC 9.4 x10-3/uL (3.2-10.1)
[2024-04-16 16:46] LABS: ALANINE AMINOTRANSFERASE,ALT 13 U/L (12-36); ALBUMIN 3.6 g/dL (3.2-4.6); ALKALINE PHOSPHATASE 56 IU/L (56-112); ASPARTATE AMNIOTRANSFERASE,AST 12 IU/L (5-25); BILIRUBIN TOTAL 0.5 mg/dL (0.1-1.3); PROTEIN TOTAL,TP 7.2 g/dL (6.0-8.0)
[2024-04-16 16:51] LABS: INR 1.03 (1.00-1.24); PROTHROMBIN TIME 10.7 sec (9.0-11.1)
[2024-04-16 16:52] LABS: TROPONIN I 7.2 pg/mL (4.0-60.3)
== END 2024-04-16 18:54 | disposition home or self-care (01) ==
LOC: FB.ED 15:33
DX: S50.01XA Contusion of right elbow, initial encounter (principal); S80.01XA Contusion of right knee, initial encounter; I11.0 Hypertensive heart disease with heart failure; I50.9 Heart failure, unspecified; E78.00 Pure hypercholesterolemia, unspecified; I48.91 Unspecified atrial fibrillation; I25.2 Old myocardial infarction; Z95.5 Presence of coronary angioplasty implant and graft; K21.9 Gastro-esophageal reflux disease without esophagitis; E11.40 Type 2 diabetes mellitus with diabetic neuropathy, unspecified; E66.9 Obesity, unspecified; F17.210 Nicotine dependence, cigarettes, uncomplicated; Z90.49 Acquired absence of other specified parts of digestive tract; Z79.4 Long term (current) use of insulin; Z79.899 Other long term (current) drug therapy; Z79.01 Long term (current) use of anticoagulants; Z79.82 Long term (current) use of aspirin; Z68.41 Body mass index [BMI] 40.0-44.9, adult; W01.0XXA Fall on same level from slipping, tripping and stumbling without subsequent striking against object, initial encounter
CPT/HCPCS: 36415; 71101-RT; 73080-RT; 73502-RT; 73560-RT; 80053; 83880; 84484; 85025; 85610; 85730; 93005; 93010; 99284

== ENCOUNTER 2024-06-20 07:55 | Emergency (ER) | payer MEDICARE, OTHER ==
[2024-06-20] MEDS: Sodium Chloride 0.9% 10 ML Syringe FLUSH PRN (08:05)
[2024-06-20 08:19] LABS: BASE EXCESS VENOUS,POC 1 mmol/L (-2 - 3+); PCO2 VENOUS,POC 41 mmHg (41-51); PH VENOUS,POC 7.41 pH Units (7.32-7.43)
[2024-06-20 08:32] LABS: HEMATOCRIT 37.5 % (38.3-50.1); HEMOGLOBIN 12.3 g/dL (12.9-17.7); MEAN CORPUSCULAR HEMOGLOBIN 27.6 pg (27.0-33.3); MEAN CORPUSCULAR HGB CONC 32.8 g/dL (28.7-35.3); MEAN PLATELET VOLUME 8.7 fL (6.7-11.0); PLATELET COUNT,PLT 300 x10(3)uL (117-477); RED BLOOD CELL COUNT 4.46 x10(6)uL (3.90-5.90); RED CELL DISTRIBUTION WIDTH 14.8 % (12.4-15.0)
[2024-06-20 08:34] LABS: BLOOD UREA NITROGEN,BUN 29 mg/dL (7-18); BUN/CREATININE RATIO 16.1 (9-20); CALCIUM 9.3 mg/dL (8.6-10.2); CARBON DIOXIDE,CO2 29 mmol/L (21-32); CHLORIDE,CL 102 mmol/L (100-110); CREATININE 1.8 mg/dL (0.70-1.30); ESTIMATED GFR 39 mL/min (>60); GLUCOSE RANDOM 112 mg/dL (80-116); POTASSIUM,K 4.8 mmol/L (3.5-5.3); SODIUM,NA 139 mmol/L (135-145)
[2024-06-20] MEDS ORDERED: Naloxone 0.4 MG/ML SDV IVPUSH PRN (08:42)
[2024-06-20] MEDS: methylPREDNISolone Sodium Succinate 125 MG/2 ML SDV IVPUSH ONE (08:42)
[2024-06-20 08:45] LABS: A/G RATIO 0.7; ALANINE AMINOTRANSFERASE,ALT 15 U/L (12-36); ALBUMIN 3.1 g/dL (3.2-4.6); ALKALINE PHOSPHATASE 54 IU/L (56-112); ASPARTATE AMNIOTRANSFERASE,AST 21 IU/L (5-25); BILIRUBIN TOTAL 0.7 mg/dL (0.1-1.3); PROTEIN TOTAL,TP 7.5 g/dL (6.0-8.0)
[2024-06-20] MEDS: Morphine 4 MG/ML VIAL IVPUSH ONE (08:46)
[2024-06-20] MEDS: Albuterol/Ipratropium 3.0-0.5 MG/3 ML Neb Soln NEB ONE ×2 (08:46)
[2024-06-20 08:47] LABS: INR 1.07 (1.00-1.24); PTT,PARTIAL THROMBOPLSTIN TIME 30.7 SECONDS (24.4-33.2)
[2024-06-20 08:48] LABS: BAND PERCENT MAN 8 % (0-6); BASOPHILS PERCENT MAN 1 % (0-2); LYMPHOCYTES PERCENT MAN 4 % (13-37); MONOCYTES PERCENT MAN 5 % (4-12); SEG NEUTROPHILS PERCENT MAN 82 % (46-82); TROPONIN I 6.7 pg/mL (4.0-60.3)
[2024-06-20 09:06] LABS: LACTIC ACID 0.9 mmol/L (0.4-2.0)
[2024-06-20 12:18] VITALS: BP 132/59; PULSE 117
== END 2024-06-20 10:13 | disposition home or self-care (01) ==
LOC: FB.ED 07:55
DX: J44.1 Chronic obstructive pulmonary disease with (acute) exacerbation (principal); I48.0 Paroxysmal atrial fibrillation; I48.92 Unspecified atrial flutter; R09.1 Pleurisy; I11.0 Hypertensive heart disease with heart failure; I50.9 Heart failure, unspecified; I25.2 Old myocardial infarction; K21.9 Gastro-esophageal reflux disease without esophagitis; E11.40 Type 2 diabetes mellitus with diabetic neuropathy, unspecified; E66.9 Obesity, unspecified; F17.210 Nicotine dependence, cigarettes, uncomplicated; Z95.5 Presence of coronary angioplasty implant and graft; Z90.49 Acquired absence of other specified parts of digestive tract; Z79.4 Long term (current) use of insulin; Z79.899 Other long term (current) drug therapy; Z79.82 Long term (current) use of aspirin; Z68.42 Body mass index [BMI] 45.0-49.9, adult
CPT/HCPCS: 36415; 71045; 80053; 83605; 83880; 84484; 85025; 85610; 85730; 93005; 93010; 94640; 96374; 96375; 99284; 99285-25; J2270; J2919; J3490; J7620; U0002

== ENCOUNTER 2024-06-24 11:30 | Inpatient (IN) | payer MEDICARE, OTHER ==
[2024-06-24] MEDS ORDERED: Sodium Chloride 0.9% 10 ML Syringe FLUSH PRN (11:56)
[2024-06-24 12:08] LABS: RED CELL DISTRIBUTION WIDTH 14.9 % (12.4-15.0)
[2024-06-24 12:09] LABS: HEMATOCRIT 33.4 % (38.3-50.1); HEMOGLOBIN 10.8 g/dL (12.9-17.7); MEAN CORPUSCULAR HEMOGLOBIN 26.9 pg (27.0-33.3); MEAN CORPUSCULAR HGB CONC 32.2 g/dL (28.7-35.3); MEAN CORPUSCULAR VOLUME 83.8 fL (80.8-98.7); MEAN PLATELET VOLUME 8.3 fL (6.7-11.0); PLATELET COUNT,PLT 354 x10(3)uL (117-477); RED BLOOD CELL COUNT 3.99 x10(6)uL (3.90-5.90); WHITE BLOOD CELL COUNT,WBC 14.7 x10-3/uL (3.2-10.1)
[2024-06-24 12:12] LABS: BASE EXCESS VENOUS,POC 6 mmol/L (-2 - 3+); PCO2 VENOUS,POC 47 mmHg (41-51); PH VENOUS,POC 7.43 pH Units (7.32-7.43)
[2024-06-24 12:13] LABS: BLOOD UREA NITROGEN,BUN 38 mg/dL (7-18); BUN/CREATININE RATIO 22.4 (9-20); CALCIUM 9.2 mg/dL (8.6-10.2); CARBON DIOXIDE,CO2 35 mmol/L (21-32); CHLORIDE,CL 101 mmol/L (100-110); CREATININE 1.7 mg/dL (0.70-1.30); ESTIMATED GFR 42 mL/min (>60); GLUCOSE RANDOM 175 mg/dL (80-116); POTASSIUM,K 4.8 mmol/L (3.5-5.3); SODIUM,NA 137 mmol/L (135-145)
[2024-06-24 12:19] LABS: A/G RATIO 0.6; ALANINE AMINOTRANSFERASE,ALT 21 U/L (12-36); ALBUMIN 2.3 g/dL (3.2-4.6); ALKALINE PHOSPHATASE 53 IU/L (56-112); ASPARTATE AMNIOTRANSFERASE,AST 18 IU/L (5-25); BILIRUBIN TOTAL 0.4 mg/dL (0.1-1.3); MAGNESIUM 1.9 mg/dL (1.8-2.5); PROTEIN TOTAL,TP 6.3 g/dL (6.0-8.0)
[2024-06-24 12:28] LABS: TROPONIN I 8.1 pg/mL (4.0-60.3)
[2024-06-24 12:30] LABS: EOSINOPHILS PERCENT MAN 1 % (0-5); LYMPHOCYTES PERCENT MAN 12 % (13-37); MONOCYTES PERCENT MAN 4 % (4-12); NRBC MANUAL 1 /100WBC (0-0); SEG NEUTROPHILS PERCENT MAN 83 % (46-82)
[2024-06-24 12:32] LABS: C-REACTIVE PROTEIN 7.63 mg/dL (<0.50)
[2024-06-24] MEDS: methylPREDNISolone Sodium Succinate 125 MG/2 ML SDV IVPUSH ONE (12:36)
[2024-06-24] MEDS: Albuterol/Ipratropium 3.0-0.5 MG/3 ML Neb Soln NEB ONE (12:50)
[2024-06-24] MEDS: Albuterol 0.083% 2.5 MG/3 ML Neb Soln NEB ONE (12:50)
[2024-06-24 13:16] LABS: APPEARANCE,URINE CLEAR (CLEAR); BACTERIA,URINE FEW (NS); BILIRUBIN,URINE NEGATIVE (NEGATIVE); COLOR,URINE YELLOW (YELLOW); GLUCOSE,URINE NORMAL (NORMAL); KETONES,URINE NEGATIVE (NEGATIVE); LEUKOCYTE ESTERASE,URINE NEGATIVE (NEGATIVE); NITRITE,URINE NEGATIVE (NEGATIVE); OCCULT BLOOD,URINE NEGATIVE (NEGATIVE); PROTEIN,URINE TRACE mg/dL (NEGATIVE); RBC,URINE 0-5 (0-5); SQUAMOUS EPITHELIAL CELLS,UR RARE (NS,R,O); UROBILINOGEN,URINE NORMAL (NEGATIVE); WBC,URINE 0-5 (0-5)
[2024-06-24] MEDS ORDERED: Albuterol 0.083% 2.5 MG/3 ML Neb Soln NEB PRN (13:49)
[2024-06-24] MEDS ORDERED: Ondansetron 4 MG/2 ML SDV IV PRN (13:49)
[2024-06-24] MEDS ORDERED: Acetaminophen 325 MG Tab PO PRN (13:49)
[2024-06-24] MEDS ORDERED: 50% Dextrose in Water 50 ML Syringe IVPUSH PRN (15:03)
[2024-06-24] MEDS ORDERED: Glucagon,Human Recombinant 1 MG Vial IM PRN (15:03)
[2024-06-24] MEDS: cefTRIAXone 1 GM Vial IVPUSH SCH (15:15)
[2024-06-24] MEDS: Furosemide 40 MG/4 ML VIAL IVPUSH ONE (15:15)
[2024-06-24] MEDS ORDERED: methylPREDNISolone Sodium Succinate 125 MG/2 ML SDV IVPUSH SCH (15:15)
[2024-06-24] MEDS: Pantoprazole 40 MG Vial IVPUSH SCH (15:15)
[2024-06-24] MEDS: Sodium Chloride 0.9% 10 ML Syringe FLUSH PRN (15:17)
[2024-06-24] MEDS: Doxycycline 100 MG in Sodium Chloride 0.9% 100 ML IV SCH (15:38)
[2024-06-24] MEDS: Albuterol/Ipratropium 3.0-0.5 MG/3 ML Neb Soln NEB SCH (15:42)
[2024-06-24] MEDS: buPROPion 150 MG Tab.SR PO SCH (15:43)
[2024-06-24] MEDS: Carvedilol 25 MG Tab PO SCH (17:58)
[2024-06-24] MEDS: Gabapentin 300 MG Cap PO SCH (17:58)
[2024-06-24] MEDS ORDERED: Insulin Lispro 100 Unit/ML 3 ML KwikPen SUBCUT ONE (18:03)
[2024-06-24] MEDS: Insulin Lispro 100 Unit/ML 3 ML KwikPen SUBCUT SCH (18:03)
[2024-06-24] MEDS: Diltiazem 25 MG/5 ML SDV IVPUSH ONE ×2 (20:25→22:59)
[2024-06-24] MEDS: Loratadine 10 MG Tab PO SCH (20:36)
[2024-06-24] MEDS: Apixaban 5 MG Tab PO SCH (20:37)
[2024-06-24] MEDS: Fenofibrate Nanocrystallized 145 MG Tab PO SCH (20:38)
[2024-06-24] MEDS: Formoterol/Mometasone 200-5 MCG 8.8 GM Inhaler INH SCH (20:47)
[2024-06-24] MEDS ORDERED: Insulin Glargine,Human Rec. Analog 100 Units/ML 3 ML Pen SUBCUT ONE (20:52)
[2024-06-24] MEDS ORDERED: Apixaban 5 MG Tab PO SCH (21:00)
[2024-06-24] MEDS: Insulin Glargine,Human Rec. Analog 100 Units/ML 3 ML Pen SUBCUT SCH (21:07)
[2024-06-24] MEDS: methylPREDNISolone Sodium Succinate 125 MG/2 ML SDV IVPUSH SCH (22:19)
[2024-06-24] MEDS: Lidocaine 2% HCl 6 ML Jel ONE (23:25)
[2024-06-25] MEDS: Diltiazem 125 MG in Sodium Chloride 0.9% 100 ML IV SCH (00:16)
[2024-06-25] MEDS: Sodium Chloride 0.9% 1,000 ML IV SCH (00:16)
[2024-06-25] MEDS: rOPINIRole 0.5 MG Tab PO PRN (00:29)
[2024-06-25] MEDS ORDERED: methylPREDNISolone Sodium Succinate 40 MG/1 ML SDV IVPUSH SCH (00:30)
[2024-06-25] MEDS: LORazepam 1 MG Tab PO PRN (01:09)
[2024-06-25] MEDS: Pantoprazole 20 MG Tab, Delayed Release PO SCH (05:20)
[2024-06-25 06:35] LABS: HEMATOCRIT 34.1 % (38.3-50.1); MEAN CORPUSCULAR HEMOGLOBIN 26.7 pg (27.0-33.3); MEAN CORPUSCULAR HGB CONC 32.2 g/dL (28.7-35.3); MEAN CORPUSCULAR VOLUME 83.2 fL (80.8-98.7); MEAN PLATELET VOLUME 8.4 fL (6.7-11.0); PLATELET COUNT,PLT 365 x10(3)uL (117-477); WHITE BLOOD CELL COUNT,WBC 18.5 x10-3/uL (3.2-10.1)
[2024-06-25 06:45] LABS: BLOOD UREA NITROGEN,BUN 41 mg/dL (7-18); BUN/CREATININE RATIO 25.6 (9-20); CALCIUM 9.2 mg/dL (8.6-10.2); CARBON DIOXIDE,CO2 33 mmol/L (21-32); CHLORIDE,CL 100 mmol/L (100-110); CREATININE 1.6 mg/dL (0.70-1.30); EST CRCL DRUG DOSING (CG) 39.78 mL/min; ESTIMATED GFR 45 mL/min (>60); GLUCOSE RANDOM 221 mg/dL (80-116); MAGNESIUM 2.1 mg/dL (1.8-2.5); POTASSIUM,K 4.2 mmol/L (3.5-5.3); SODIUM,NA 137 mmol/L (135-145)
[2024-06-25 06:54] LABS: TROPONIN I 6.7 pg/mL (4.0-60.3)
[2024-06-25 06:57] LABS: C-REACTIVE PROTEIN 6.86 mg/dL (<0.50)
[2024-06-25 07:11] LABS: LYMPHOCYTES PERCENT MAN 3 % (13-37); MONOCYTES PERCENT MAN 3 % (4-12); SEG NEUTROPHILS PERCENT MAN 94 % (46-82)
[2024-06-25] MEDS: Fish Oil/Omega-3 Fatty Acids 1 Gm Cap PO SCH (08:18)
[2024-06-25] MEDS: Aspirin 81 MG Tab.Chew PO SCH (08:18)
[2024-06-25] MEDS: Isosorbide Mononitrate 30 MG Tab.ER PO SCH (08:18)
[2024-06-25] MEDS: amLODIPine 10 MG Tab PO SCH (08:19)
[2024-06-25] MEDS: Rosuvastatin 20 MG Tab PO SCH (08:19)
[2024-06-25] MEDS: Vitamin B Complex with Vitamin C Tab PO SCH (08:20)
[2024-06-25] MEDS: Furosemide 40 MG/4 ML VIAL IVPUSH SCH (09:46)
[2024-06-25] MEDS: Nicotine 14 MG/24 Hr Patch TRDERM SCH (09:51)
[2024-06-25] MEDS: Diltiazem 120 MG Cap.CD PO SCH (11:06)
[2024-06-27 06:26] LABS: HEMATOCRIT 35.4 % (38.3-50.1); HEMOGLOBIN 11.4 g/dL (12.9-17.7); MEAN CORPUSCULAR HEMOGLOBIN 26.8 pg (27.0-33.3); MEAN CORPUSCULAR HGB CONC 32.4 g/dL (28.7-35.3); MEAN CORPUSCULAR VOLUME 82.8 fL (80.8-98.7); MEAN PLATELET VOLUME 8.6 fL (6.7-11.0); PLATELET COUNT,PLT 371 x10(3)uL (117-477); RED BLOOD CELL COUNT 4.27 x10(6)uL (3.90-5.90); RED CELL DISTRIBUTION WIDTH 15.1 % (12.4-15.0); WHITE BLOOD CELL COUNT,WBC 23.6 x10-3/uL (3.2-10.1)
[2024-06-27 06:36] LABS: BLOOD UREA NITROGEN,BUN 57 mg/dL (7-18); BUN/CREATININE RATIO 31.7 (9-20); CALCIUM 8.8 mg/dL (8.6-10.2); CARBON DIOXIDE,CO2 37 mmol/L (21-32); CHLORIDE,CL 96 mmol/L (100-110); CREATININE 1.8 mg/dL (0.70-1.30); EST CRCL DRUG DOSING (CG) 35.36 mL/min; ESTIMATED GFR 39 mL/min (>60); GLUCOSE RANDOM 202 mg/dL (80-116); POTASSIUM,K 3.7 mmol/L (3.5-5.3); SODIUM,NA 137 mmol/L (135-145)
[2024-06-27 06:52] LABS: BAND PERCENT MAN 4 % (0-6); LYMPHOCYTES PERCENT MAN 2 % (13-37); METAMYELOCYTE PERCENT MAN 2 % (0-0); SEG NEUTROPHILS PERCENT MAN 92 % (46-82)
[2024-06-27 07:14] LABS: C-REACTIVE PROTEIN 2.15 mg/dL (<0.50)
[2024-06-27] MEDS: Metolazone 5 MG Tab PO ONE (09:24)
[2024-06-28 06:32] LABS: BLOOD UREA NITROGEN,BUN 68 mg/dL (7-18); BUN/CREATININE RATIO 37.8 (9-20); CALCIUM 8.9 mg/dL (8.6-10.2); CARBON DIOXIDE,CO2 38 mmol/L (21-32); CHLORIDE,CL 94 mmol/L (100-110); CREATININE 1.8 mg/dL (0.70-1.30); EST CRCL DRUG DOSING (CG) 35.36 mL/min; ESTIMATED GFR 39 mL/min (>60); GLUCOSE RANDOM 191 mg/dL (80-116); POTASSIUM,K 3.3 mmol/L (3.5-5.3); SODIUM,NA 135 mmol/L (135-145)
[2024-06-28 06:33] LABS: HEMATOCRIT 37.1 % (38.3-50.1); MEAN CORPUSCULAR HEMOGLOBIN 26.8 pg (27.0-33.3); MEAN CORPUSCULAR HGB CONC 32.4 g/dL (28.7-35.3); MEAN CORPUSCULAR VOLUME 82.7 fL (80.8-98.7); MEAN PLATELET VOLUME 8.3 fL (6.7-11.0); PLATELET COUNT,PLT 341 x10(3)uL (117-477); RED BLOOD CELL COUNT 4.49 x10(6)uL (3.90-5.90); RED CELL DISTRIBUTION WIDTH 15.1 % (12.4-15.0); WHITE BLOOD CELL COUNT,WBC 23.2 x10-3/uL (3.2-10.1)
[2024-06-28 06:45] LABS: TROPONIN I 8.7 pg/mL (4.0-60.3)
[2024-06-28 06:54] LABS: BAND PERCENT MAN 3 % (0-6); LYMPHOCYTES PERCENT MAN 5 % (13-37); MONOCYTES PERCENT MAN 2 % (4-12); SEG NEUTROPHILS PERCENT MAN 90 % (46-82)
[2024-06-28 06:55] LABS: ANISOCYTOSIS FEW
[2024-06-28] MEDS: Potassium Chloride 20 MEQ Tab.ER PO ONE (12:28)
[2024-06-28] MEDS: Iopamidol 755 Mg/ML 100 ML Bottle IV SCH (14:42)
[2024-06-28] MEDS: methylPREDNISolone Sodium Succinate 125 MG/2 ML SDV IVPUSH SCH (17:49)
[2024-06-29] MEDS: Melatonin 3 MG Tab PO PRN (01:23)
[2024-06-29 06:23] LABS: HEMATOCRIT 39.1 % (38.3-50.1); HEMOGLOBIN 12.6 g/dL (12.9-17.7); MEAN CORPUSCULAR HEMOGLOBIN 26.5 pg (27.0-33.3); MEAN CORPUSCULAR HGB CONC 32.3 g/dL (28.7-35.3); MEAN PLATELET VOLUME 8.7 fL (6.7-11.0); PLATELET COUNT,PLT 360 x10(3)uL (117-477); RED BLOOD CELL COUNT 4.77 x10(6)uL (3.90-5.90); RED CELL DISTRIBUTION WIDTH 14.8 % (12.4-15.0); WHITE BLOOD CELL COUNT,WBC 24.8 x10-3/uL (3.2-10.1)
[2024-06-29 06:29] LABS: BLOOD UREA NITROGEN,BUN 80 mg/dL (7-18); BUN/CREATININE RATIO 38.1 (9-20); CARBON DIOXIDE,CO2 39 mmol/L (21-32); CHLORIDE,CL 94 mmol/L (100-110); EST CRCL DRUG DOSING (CG) 30.31 mL/min; ESTIMATED GFR 33 mL/min (>60); GLUCOSE RANDOM 239 mg/dL (80-116); POTASSIUM,K 3.2 mmol/L (3.5-5.3); SODIUM,NA 137 mmol/L (135-145)
[2024-06-29 06:40] LABS: CREATININE 2.1 mg/dL (0.70-1.30)
[2024-06-29 06:45] LABS: BAND PERCENT MAN 1 % (0-6); LYMPHOCYTES PERCENT MAN 2 % (13-37); MONOCYTES PERCENT MAN 5 % (4-12); SEG NEUTROPHILS PERCENT MAN 92 % (46-82)
[2024-06-29 09:30] LABS: LACTIC ACID 1.2 mmol/L (0.4-2.0)
[2024-06-29] MEDS: Potassium Chloride 20 MEQ in Premix Bag 1 BAG IV SCH (09:41)
[2024-06-29 15:30] LABS: STREPTOCOCCUS PNEUMONIAE AG,UR Negative (Negative)
[2024-06-30 06:55] LABS: HEMATOCRIT 39.9 % (38.3-50.1); HEMOGLOBIN 12.7 g/dL (12.9-17.7); MEAN CORPUSCULAR HEMOGLOBIN 26.4 pg (27.0-33.3); MEAN CORPUSCULAR HGB CONC 31.9 g/dL (28.7-35.3); MEAN CORPUSCULAR VOLUME 82.6 fL (80.8-98.7); MEAN PLATELET VOLUME 8.7 fL (6.7-11.0); PLATELET COUNT,PLT 348 x10(3)uL (117-477); RED BLOOD CELL COUNT 4.83 x10(6)uL (3.90-5.90); RED CELL DISTRIBUTION WIDTH 14.8 % (12.4-15.0); WHITE BLOOD CELL COUNT,WBC 26.2 x10-3/uL (3.2-10.1)
[2024-06-30 07:07] LABS: BLOOD UREA NITROGEN,BUN 76 mg/dL (7-18); CALCIUM 8.8 mg/dL (8.6-10.2); CHLORIDE,CL 92 mmol/L (100-110); CREATININE 1.9 mg/dL (0.70-1.30); ESTIMATED GFR 37 mL/min (>60); GLUCOSE RANDOM 211 mg/dL (80-116); POTASSIUM,K 3.5 mmol/L (3.5-5.3); SODIUM,NA 136 mmol/L (135-145)
[2024-06-30 07:14] LABS: CARBON DIOXIDE,CO2 40 mmol/L (21-32)
[2024-06-30 07:21] LABS: LYMPHOCYTES PERCENT MAN 6 % (13-37); MONOCYTES PERCENT MAN 3 % (4-12); SEG NEUTROPHILS PERCENT MAN 91 % (46-82)
[2024-07-01 06:43] LABS: HEMATOCRIT 37.9 % (38.3-50.1); HEMOGLOBIN 12.3 g/dL (12.9-17.7); MEAN CORPUSCULAR HEMOGLOBIN 26.5 pg (27.0-33.3); MEAN CORPUSCULAR HGB CONC 32.5 g/dL (28.7-35.3); MEAN CORPUSCULAR VOLUME 81.4 fL (80.8-98.7); MEAN PLATELET VOLUME 8.8 fL (6.7-11.0); PLATELET COUNT,PLT 309 x10(3)uL (117-477); RED BLOOD CELL COUNT 4.65 x10(6)uL (3.90-5.90); RED CELL DISTRIBUTION WIDTH 14.7 % (12.4-15.0)
[2024-07-01 06:44] LABS: BLOOD UREA NITROGEN,BUN 80 mg/dL (7-18); CALCIUM 8.8 mg/dL (8.6-10.2); CHLORIDE,CL 93 mmol/L (100-110); EST CRCL DRUG DOSING (CG) 31.83 mL/min; ESTIMATED GFR 35 mL/min (>60); GLUCOSE RANDOM 191 mg/dL (80-116); POTASSIUM,K 3.2 mmol/L (3.5-5.3); SODIUM,NA 136 mmol/L (135-145)
[2024-07-01 06:56] LABS: CARBON DIOXIDE,CO2 43 mmol/L (21-32)
[2024-07-01 07:02] LABS: LYMPHOCYTES PERCENT MAN 2 % (13-37); MONOCYTES PERCENT MAN 1 % (4-12); SEG NEUTROPHILS PERCENT MAN 97 % (46-82)
[2024-07-01] MEDS ORDERED: Sodium Chloride 0.65% Nasal Spray 45 ML Bottle NAS PRN (08:34)
[2024-07-01] MEDS: Potassium Chloride 20 MEQ Tab.ER PO ONE (10:05)
[2024-07-01] MEDS: Fluticasone NASAL Spray 16 GM Bottle NASBOTH SCH (10:05)
[2024-07-01] MEDS: methylPREDNISolone Sodium Succinate 40 MG/1 ML SDV IVPUSH SCH (21:25)
[2024-07-02 05:31] LABS: HEMATOCRIT 38.6 % (38.3-50.1); HEMOGLOBIN 12.6 g/dL (12.9-17.7); MEAN CORPUSCULAR HGB CONC 32.7 g/dL (28.7-35.3); MEAN CORPUSCULAR VOLUME 82.3 fL (80.8-98.7); PLATELET COUNT,PLT 290 x10(3)uL (117-477); RED BLOOD CELL COUNT 4.69 x10(6)uL (3.90-5.90); RED CELL DISTRIBUTION WIDTH 15.2 % (12.4-15.0); WHITE BLOOD CELL COUNT,WBC 26.8 x10-3/uL (3.2-10.1)
[2024-07-02 05:34] LABS: BLOOD UREA NITROGEN,BUN 82 mg/dL (7-18); CALCIUM 8.9 mg/dL (8.6-10.2); CHLORIDE,CL 94 mmol/L (100-110); EST CRCL DRUG DOSING (CG) 31.83 mL/min; ESTIMATED GFR 35 mL/min (>60); GLUCOSE RANDOM 128 mg/dL (80-116); POTASSIUM,K 3.6 mmol/L (3.5-5.3); SODIUM,NA 136 mmol/L (135-145)
[2024-07-02 05:48] LABS: CARBON DIOXIDE,CO2 42 mmol/L (21-32)
[2024-07-02 06:15] LABS: LYMPHOCYTES PERCENT MAN 6 % (13-37); MONOCYTES PERCENT MAN 5 % (4-12); SEG NEUTROPHILS PERCENT MAN 89 % (46-82)
[2024-07-02] MEDS ORDERED: Insulin Lispro 100 Unit/ML 3 ML KwikPen SUBCUT ONE (13:32)
[2024-07-02] MEDS ORDERED: Benzonatate 100 MG Cap PO PRN (14:01)
[2024-07-03] MEDS: Melatonin 3 MG Tab PO PRN (00:14)
[2024-07-03 02:40] LABS: CREATININE,URINE - PER VOLUME 70 mg/dL; HOURS COLLECTED Random hr; TOTAL VOLUME Random mL; URINE UREA NITROGEN - MG/DL 1073 mg/dL
[2024-07-03 06:41] LABS: HEMATOCRIT 37.6 % (38.3-50.1); HEMOGLOBIN 12.4 g/dL (12.9-17.7); MEAN CORPUSCULAR HEMOGLOBIN 26.9 pg (27.0-33.3); MEAN CORPUSCULAR HGB CONC 32.9 g/dL (28.7-35.3); MEAN CORPUSCULAR VOLUME 81.8 fL (80.8-98.7); MEAN PLATELET VOLUME 9.1 fL (6.7-11.0); PLATELET COUNT,PLT 262 x10(3)uL (117-477); RED CELL DISTRIBUTION WIDTH 14.6 % (12.4-15.0)
[2024-07-03 06:46] LABS: BLOOD UREA NITROGEN,BUN 80 mg/dL (7-18); CALCIUM 8.7 mg/dL (8.6-10.2); CHLORIDE,CL 96 mmol/L (100-110); CREATININE 1.9 mg/dL (0.70-1.30); ESTIMATED GFR 37 mL/min (>60); GLUCOSE RANDOM 171 mg/dL (80-116); POTASSIUM,K 3.9 mmol/L (3.5-5.3); SODIUM,NA 139 mmol/L (135-145)
[2024-07-03 06:54] LABS: BUN/CREATININE RATIO 42.1 (9-20); CARBON DIOXIDE,CO2 42 mmol/L (21-32)
[2024-07-03 07:02] LABS: LYMPHOCYTES PERCENT MAN 2 % (13-37); MONOCYTES PERCENT MAN 5 % (4-12); SEG NEUTROPHILS PERCENT MAN 93 % (46-82)
[2024-07-03 08:15] VITALS: BP 110/56; PULSE 71
[2024-07-04 06:44] LABS: CREATININE,URINE - PER VOLUME 70 mg/dL; HOURS COLLECTED Random hr; TOTAL VOLUME Random mL
== END 2024-07-03 13:33 | disposition swing bed (61) | DRG 193 ==
LOC: FB.ED 11:30 → FB.MS 13:44
PROVIDERS: ADMIT Family Medicine; ATTEND Internal Medicine
DX: J18.9 Pneumonia, unspecified organism (principal); I11.0 Hypertensive heart disease with heart failure; I50.9 Heart failure, unspecified; I50.41 Acute combined systolic (congestive) and diastolic (congestive) heart failure; I48.91 Unspecified atrial fibrillation; J96.21 Acute and chronic respiratory failure with hypoxia; Z68.41 Body mass index [BMI] 40.0-44.9, adult; J44.1 Chronic obstructive pulmonary disease with (acute) exacerbation; I13.0 Hypertensive heart and chronic kidney disease with heart failure and stage 1 through stage 4 chronic kidney disease, or unspecified chronic kidney disease; I48.19 Other persistent atrial fibrillation; E66.9 Obesity, unspecified; J98.11 Atelectasis; N17.9 Acute kidney failure, unspecified; Z66 Do not resuscitate; H91.90 Unspecified hearing loss, unspecified ear; Z68.42 Body mass index [BMI] 45.0-49.9, adult; H54.7 Unspecified visual loss; E78.00 Pure hypercholesterolemia, unspecified; J44.9 Chronic obstructive pulmonary disease, unspecified; G47.30 Sleep apnea, unspecified; K21.9 Gastro-esophageal reflux disease without esophagitis; N40.0 Benign prostatic hyperplasia without lower urinary tract symptoms; M19.90 Unspecified osteoarthritis, unspecified site; M54.9 Dorsalgia, unspecified; G89.29 Other chronic pain; F32.A Depression, unspecified; E11.40 Type 2 diabetes mellitus with diabetic neuropathy, unspecified; G43.909 Migraine, unspecified, not intractable, without status migrainosus; Z96.649 Presence of unspecified artificial hip joint; F17.210 Nicotine dependence, cigarettes, uncomplicated; I25.10 Atherosclerotic heart disease of native coronary artery without angina pectoris; E11.22 Type 2 diabetes mellitus with diabetic chronic kidney disease; E66.01 Morbid (severe) obesity due to excess calories; N18.31 Chronic kidney disease, stage 3a; E87.6 Hypokalemia; R79.89 Other specified abnormal findings of blood chemistry; Z99.81 Dependence on supplemental oxygen; Z79.82 Long term (current) use of aspirin; Z79.899 Other long term (current) drug therapy; Z79.51 Long term (current) use of inhaled steroids; Z79.01 Long term (current) use of anticoagulants; Z79.4 Long term (current) use of insulin; I25.2 Old myocardial infarction; Z95.5 Presence of coronary angioplasty implant and graft; Z87.81 Personal history of (healed) traumatic fracture; Z98.49 Cataract extraction status, unspecified eye; Z90.89 Acquired absence of other organs; Z90.49 Acquired absence of other specified parts of digestive tract; Z98.890 Other specified postprocedural states
CPT/HCPCS: 36415; 71045; 80053; 81001; 83605; 83735; 83880; 84484; 85025; 86140; 87040 ×2; 93005; 93010; 94640 ×2; 96374; 99285 ×2; J2919; 51702; 71046; 71275; 76770; 80048; 82570; 82947; 84540; 85379; 87070; 87205; 87899; 93306; 97110-GO; 97110-GP; 97113-GO; 97161-GP; 97165-GO; 97530-GO; 97530-GP; 97535-GO; 99222; 99232; 99238; A9270-GY; J0696; J1815; J1815-GY; J1940; J2470; J3480; J3490; J7030; J7620; Q9967; U0002

== ENCOUNTER 2024-07-03 13:29 | Inpatient (IN) | payer MEDICARE, OTHER ==
[2024-07-03] MEDS ORDERED: Albuterol 6.7 GM Inhaler INH PRN (14:13)
[2024-07-03] MEDS ORDERED: Benzonatate 100 MG Cap PO PRN (14:13)
[2024-07-03] MEDS ORDERED: Furosemide 20 MG Tab PO PRN (14:15)
[2024-07-03] MEDS ORDERED: Nitroglycerin 0.4 MG Tab.SL SL PRN (14:15)
[2024-07-03] MEDS ORDERED: Melatonin 3 MG Tab PO PRN (14:15)
[2024-07-03] MEDS ORDERED: Glucagon,Human Recombinant 1 MG Vial IM PRN (14:15)
[2024-07-03] MEDS ORDERED: 50% Dextrose in Water 50 ML Syringe IVPUSH PRN (14:15)
[2024-07-03] MEDS: Cefuroxime 250 MG Tab PO SCH (15:25)
[2024-07-03] MEDS: Furosemide 40 MG/4 ML VIAL IVPUSH ONE (15:25)
[2024-07-03] MEDS: Albuterol/Ipratropium 3.0-0.5 MG/3 ML Neb Soln INH SCH (15:26)
[2024-07-03] MEDS: Doxycycline 100 MG Tab PO ONE (15:26)
[2024-07-03] MEDS: buPROPion 150 MG Tab.SR PO SCH (15:27)
[2024-07-03] MEDS: Sodium Chloride 0.9% 10 ML Syringe FLUSH ONE (15:31)
[2024-07-03] MEDS: Gabapentin 300 MG Cap PO SCH (16:29)
[2024-07-03] MEDS: Carvedilol 25 MG Tab PO SCH (18:20)
[2024-07-03] MEDS: Formoterol/Mometasone 200-5 MCG 8.8 GM Inhaler INH SCH (20:08)
[2024-07-03] MEDS: Loratadine 10 MG Tab PO SCH (20:08)
[2024-07-03] MEDS: Fenofibrate Nanocrystallized 145 MG Tab PO SCH (20:09)
[2024-07-03] MEDS: Apixaban 5 MG Tab PO SCH (20:09)
[2024-07-03] MEDS: Insulin Glargine,Human Rec. Analog 100 Units/ML 3 ML Pen SUBCUT SCH (20:11)
[2024-07-04] MEDS: Pantoprazole 20 MG Tab, Delayed Release PO SCH (05:10)
[2024-07-04] MEDS: Fluticasone NASAL Spray 16 GM Bottle NASBOTH SCH (09:25)
[2024-07-04] MEDS: predniSONE 10 MG Tab PO SCH (09:32)
[2024-07-04] MEDS: Rosuvastatin 20 MG Tab PO SCH (09:33)
[2024-07-04] MEDS: Diltiazem 120 MG Cap.CD PO SCH (09:33)
[2024-07-04] MEDS: Aspirin 81 MG Tab.Chew PO SCH (09:33)
[2024-07-04] MEDS: Isosorbide Mononitrate 30 MG Tab.ER PO SCH (09:34)
[2024-07-04] MEDS: Lisinopril 20 MG Tab PO SCH (09:34)
[2024-07-04] MEDS: Fish Oil/Omega-3 Fatty Acids 1 Gm Cap PO SCH (09:35)
[2024-07-04] MEDS: Vitamin B Complex with Vitamin C Tab PO SCH (09:41)
[2024-07-04] MEDS: Melatonin 3 MG Tab PO SCH (22:01)
[2024-07-04] MEDS: rOPINIRole 0.5 MG Tab PO PRN (23:52)
[2024-07-05 08:58] LABS: HEMATOCRIT 36.9 % (38.3-50.1); HEMOGLOBIN 11.8 g/dL (12.9-17.7); MEAN CORPUSCULAR HEMOGLOBIN 26.3 pg (27.0-33.3); MEAN CORPUSCULAR HGB CONC 32.1 g/dL (28.7-35.3); MEAN CORPUSCULAR VOLUME 82.1 fL (80.8-98.7); MEAN PLATELET VOLUME 9.5 fL (6.7-11.0); PLATELET COUNT,PLT 236 x10(3)uL (117-477); RED CELL DISTRIBUTION WIDTH 14.9 % (12.4-15.0); WHITE BLOOD CELL COUNT,WBC 18.3 x10-3/uL (3.2-10.1)
[2024-07-05 09:10] LABS: A/G RATIO 0.8; ALANINE AMINOTRANSFERASE,ALT 53 U/L (12-36); ALBUMIN 2.3 g/dL (3.2-4.6); ALKALINE PHOSPHATASE 63 IU/L (56-112); ASPARTATE AMNIOTRANSFERASE,AST 34 IU/L (5-25); BILIRUBIN TOTAL 0.6 mg/dL (0.1-1.3); BLOOD UREA NITROGEN,BUN 85 mg/dL (7-18); CALCIUM 8.8 mg/dL (8.6-10.2); CARBON DIOXIDE,CO2 39 mmol/L (21-32); CHLORIDE,CL 97 mmol/L (100-110); EST CRCL DRUG DOSING (CG) 31.83 mL/min; ESTIMATED GFR 35 mL/min (>60); GLUCOSE RANDOM 168 mg/dL (80-116); POTASSIUM,K 4.1 mmol/L (3.5-5.3); PROTEIN TOTAL,TP 5.1 g/dL (6.0-8.0); SODIUM,NA 138 mmol/L (135-145)
[2024-07-05] MEDS: Sodium Chloride 0.9% 500 ML IV ONE (09:10)
[2024-07-05 09:11] LABS: HYPERSEGMENTED NEUTROPHILS MODERATE; LYMPHOCYTES PERCENT MAN 8 % (13-37); MONOCYTES PERCENT MAN 9 % (4-12); SEG NEUTROPHILS PERCENT MAN 83 % (46-82)
[2024-07-05 09:13] LABS: BUN/CREATININE RATIO 42.5 (9-20)
[2024-07-05] MEDS: Menthol 10%/Methyl Salicylate 30% 85 GM Tube TOP PRN (09:34)
[2024-07-05] MEDS: Lidocaine 4% 1 each Patch TOP PRN (11:52)
[2024-07-05] MEDS: LIDOCAINE PATCH TRDERM SCH (21:06)
[2024-07-06] MEDS ORDERED: Insulin Glargine,Human Rec. Analog 100 Units/ML 3 ML Pen SUBCUT ONE (12:29)
[2024-07-06] MEDS: Nystatin Susp 100,000 Unit/ML 5 ML UD Cup PO SCH (12:53)
[2024-07-08] MEDS: Nystatin Topical Powder 15 GM Bottle TOP SCH (12:09)
[2024-07-09] MEDS: Pioglitazone 15 MG Tab PO SCH (10:06)
[2024-07-11 08:53] LABS: HEMATOCRIT 31.7 % (38.3-50.1); HEMOGLOBIN 10.2 g/dL (12.9-17.7); MEAN CORPUSCULAR HEMOGLOBIN 26.6 pg (27.0-33.3); MEAN CORPUSCULAR HGB CONC 32.2 g/dL (28.7-35.3); MEAN CORPUSCULAR VOLUME 82.6 fL (80.8-98.7); MEAN PLATELET VOLUME 9.3 fL (6.7-11.0); PLATELET COUNT,PLT 110 x10(3)uL (117-477); RED BLOOD CELL COUNT 3.83 x10(6)uL (3.90-5.90); RED CELL DISTRIBUTION WIDTH 15.3 % (12.4-15.0); WHITE BLOOD CELL COUNT,WBC 15.3 x10-3/uL (3.2-10.1)
[2024-07-11 08:56] LABS: BLOOD UREA NITROGEN,BUN 38 mg/dL (7-18); BUN/CREATININE RATIO 22.4 (9-20); CALCIUM 8.2 mg/dL (8.6-10.2); CARBON DIOXIDE,CO2 31 mmol/L (21-32); CHLORIDE,CL 104 mmol/L (100-110); CREATININE 1.7 mg/dL (0.70-1.30); EST CRCL DRUG DOSING (CG) 37.44 mL/min; ESTIMATED GFR 42 mL/min (>60); GLUCOSE RANDOM 157 mg/dL (80-116); POTASSIUM,K 4.9 mmol/L (3.5-5.3); SODIUM,NA 137 mmol/L (135-145)
[2024-07-11 09:02] LABS: A/G RATIO 0.7; ALANINE AMINOTRANSFERASE,ALT 56 U/L (12-36); ALBUMIN 2.1 g/dL (3.2-4.6); ALKALINE PHOSPHATASE 78 IU/L (56-112); ASPARTATE AMNIOTRANSFERASE,AST 31 IU/L (5-25); BILIRUBIN TOTAL 0.6 mg/dL (0.1-1.3); PROTEIN TOTAL,TP 5.3 g/dL (6.0-8.0)
[2024-07-11] MEDS: Carvedilol 6.25 MG Tab PO SCH (09:06)
[2024-07-11 09:09] LABS: LYMPHOCYTES PERCENT MAN 7 % (13-37); MONOCYTES PERCENT MAN 6 % (4-12); SEG NEUTROPHILS PERCENT MAN 87 % (46-82)
[2024-07-11] MEDS: Furosemide 40 MG Tab PO ONE (10:51)
[2024-07-11] MEDS ORDERED: ALPRAZolam 0.25 MG Tab PO PRN (17:27)
[2024-07-11] MEDS: Arformoterol 15 MCG/2 ML Neb Soln INH SCH (21:14)
[2024-07-11] MEDS: Budesonide 0.5 MG/2 ML Neb Susp INH SCH (21:15)
[2024-07-12] MEDS: Furosemide 20 MG Tab PO SCH (08:38)
[2024-07-12] MEDS: Furosemide 20 MG Tab PO PRN (08:38)
[2024-07-12 13:02] VITALS: BP 117/48; PULSE 96
== END 2024-07-12 12:30 | disposition home or self-care (01) | DRG 947 ==
LOC: UNDOADMIN 13:29 → FB.MS 13:29
PROVIDERS: ADMIT Internal Medicine; ATTEND Internal Medicine
DX: R53.81 Other malaise (principal); I50.43 Acute on chronic combined systolic (congestive) and diastolic (congestive) heart failure; J18.9 Pneumonia, unspecified organism; J96.21 Acute and chronic respiratory failure with hypoxia; I13.0 Hypertensive heart and chronic kidney disease with heart failure and stage 1 through stage 4 chronic kidney disease, or unspecified chronic kidney disease; N17.9 Acute kidney failure, unspecified; I48.19 Other persistent atrial fibrillation; J44.1 Chronic obstructive pulmonary disease with (acute) exacerbation; J44.0 Chronic obstructive pulmonary disease with (acute) lower respiratory infection; Z68.42 Body mass index [BMI] 45.0-49.9, adult; E11.22 Type 2 diabetes mellitus with diabetic chronic kidney disease; N18.32 Chronic kidney disease, stage 3b; I25.2 Old myocardial infarction; E87.70 Fluid overload, unspecified; H54.7 Unspecified visual loss; G47.30 Sleep apnea, unspecified; N40.0 Benign prostatic hyperplasia without lower urinary tract symptoms; H91.90 Unspecified hearing loss, unspecified ear; I25.10 Atherosclerotic heart disease of native coronary artery without angina pectoris; I95.9 Hypotension, unspecified; E87.6 Hypokalemia; E11.40 Type 2 diabetes mellitus with diabetic neuropathy, unspecified; E66.01 Morbid (severe) obesity due to excess calories; M19.90 Unspecified osteoarthritis, unspecified site; F32.A Depression, unspecified; G89.29 Other chronic pain; M54.9 Dorsalgia, unspecified; G43.909 Migraine, unspecified, not intractable, without status migrainosus; Z95.5 Presence of coronary angioplasty implant and graft; Z79.4 Long term (current) use of insulin; Z79.82 Long term (current) use of aspirin; Z79.01 Long term (current) use of anticoagulants; Z79.52 Long term (current) use of systemic steroids; Z90.49 Acquired absence of other specified parts of digestive tract; Z90.89 Acquired absence of other organs; Z96.649 Presence of unspecified artificial hip joint; Z98.890 Other specified postprocedural states; Z79.899 Other long term (current) drug therapy
CPT/HCPCS: 36415; 71046; 80053; 82947; 85025; 93005; 93010; 94640; 97110-GO; 97110-GP; 97530-GO; 97530-GP; 97535-GO; 99305; 99307; 99308; 99316; A9270-GY; J1815-GY; J1940; J3490; J7040; J7512; J7605; J7620

== ENCOUNTER 2024-07-16 22:59 | Emergency (ER) | payer MEDICARE, OTHER ==
[2024-07-16 23:26] VITALS: BP 133/62; PULSE 152
[2024-07-16] MEDS ORDERED: Sodium Chloride 0.9% 10 ML Syringe FLUSH PRN (23:49)
[2024-07-17 00:01] LABS: BASOPHILS ABSOLUTE AUTO 0.1 x10-3/uL (0.0-0.3); BASOPHILS PERCENT AUTO 0.7 % (0.3-3.8); EOSINOPHILS ABSOLUTE AUTO 0.2 x10-3/uL (0.0-0.6); EOSINOPHILS PERCENT AUTO 1.7 % (0.1-6.8); HEMATOCRIT 27.4 % (38.3-50.1); LYMPHOCYTES ABSOLUTE AUTO 0.7 x10-3/uL (0.5-4.5); LYMPHOCYTES PERCENT AUTO 8.5 % (15.8-45.3); MEAN CORPUSCULAR HGB CONC 32.8 g/dL (28.7-35.3); MEAN CORPUSCULAR VOLUME 82.4 fL (80.8-98.7); MEAN PLATELET VOLUME 7.9 fL (6.7-11.0); MONOCYTES ABSOLUTE AUTO 0.7 x10-3/uL (0.0-1.2); MONOCYTES PERCENT AUTO 8.4 % (5.5-15.2); NEUTROPHILS ABSOLUTE AUTO 7.1 x10-3/uL (1.7-6.9); NEUTROPHILS PERCENT AUTO 80.7 % (40.3-71.8); PLATELET COUNT,PLT 197 x10(3)uL (117-477); RED BLOOD CELL COUNT 3.32 x10(6)uL (3.90-5.90); RED CELL DISTRIBUTION WIDTH 15.6 % (12.4-15.0); WHITE BLOOD CELL COUNT,WBC 8.8 x10-3/uL (3.2-10.1)
[2024-07-17 00:04] LABS: BASE EXCESS VENOUS,POC 5 mmol/L (-2 - 3+); PCO2 VENOUS,POC 38 mmHg (41-51); PH VENOUS,POC 7.49 pH Units (7.32-7.43)
[2024-07-17] MEDS: Furosemide 40 MG/4 ML VIAL IVPUSH ONE (00:04)
[2024-07-17 00:11] LABS: A/G RATIO 0.5; ALANINE AMINOTRANSFERASE,ALT 49 U/L (12-36); ALBUMIN 1.9 g/dL (3.2-4.6); ALKALINE PHOSPHATASE 62 IU/L (56-112); ASPARTATE AMNIOTRANSFERASE,AST 26 IU/L (5-25); BILIRUBIN TOTAL 0.6 mg/dL (0.1-1.3); BLOOD UREA NITROGEN,BUN 25 mg/dL (7-18); BUN/CREATININE RATIO 12.5 (9-20); CALCIUM 8.5 mg/dL (8.6-10.2); CARBON DIOXIDE,CO2 35 mmol/L (21-32); CHLORIDE,CL 98 mmol/L (100-110); ESTIMATED GFR 35 mL/min (>60); GLUCOSE RANDOM 146 mg/dL (80-116); POTASSIUM,K 4.2 mmol/L (3.5-5.3); PROTEIN TOTAL,TP 5.8 g/dL (6.0-8.0); SODIUM,NA 134 mmol/L (135-145)
[2024-07-17 00:27] LABS: TROPONIN I 16.3 pg/mL (4.0-60.3)
[2024-07-17 00:30] LABS: C-REACTIVE PROTEIN 11.21 mg/dL (<0.50)
[2024-07-17] MEDS: Adenosine 6 MG/2 ML SDV IVPUSH ONE ×2 (02:18→02:41)
[2024-07-17] MEDS: LORazepam 2 MG/ML SDV IVPUSH ONE (02:29)
[2024-07-17] MEDS: Diltiazem 25 MG/5 ML SDV IVPUSH ONE ×2 (02:49→03:28)
== END 2024-07-17 06:04 ==
LOC: FB.ED 22:59
DX: J44.1 Chronic obstructive pulmonary disease with (acute) exacerbation (principal); I11.0 Hypertensive heart disease with heart failure; I50.9 Heart failure, unspecified; I47.10 Supraventricular tachycardia, unspecified; I25.2 Old myocardial infarction; E11.40 Type 2 diabetes mellitus with diabetic neuropathy, unspecified; E66.9 Obesity, unspecified; Z90.49 Acquired absence of other specified parts of digestive tract
CPT/HCPCS: 36415; 71045; 80053; 83605; 83880; 84484; 85025; 86140; 87040; 93005; 96374; 96375; 96376; 99285; J0153; J1940; J2060; J3490

== ENCOUNTER 2025-03-30 03:48 | Inpatient (IN) | payer MEDICARE, OTHER ==
[2025-03-30] MEDS: Sodium Chloride 0.9% 10 ML Syringe FLUSH PRN (04:16)
[2025-03-30] MEDS: Furosemide 40 MG/4 ML VIAL IVPUSH ONE (04:16)
[2025-03-30 04:41] LABS: BASE EXCESS VENOUS,POC 3 mmol/L (-2 - 3+); PCO2 VENOUS,POC 44 mmHg (41-51); PH VENOUS,POC 7.41 pH Units (7.32-7.43)
[2025-03-30 04:43] LABS: BASOPHILS PERCENT AUTO 0.4 % (0.3-3.8); EOSINOPHILS ABSOLUTE AUTO 0.3 x10-3/uL (0.0-0.6); EOSINOPHILS PERCENT AUTO 2.9 % (0.1-6.8); HEMATOCRIT 30.7 % (38.3-50.1); HEMOGLOBIN 10.1 g/dL (12.9-17.7); LYMPHOCYTES ABSOLUTE AUTO 1.4 x10-3/uL (0.5-4.5); LYMPHOCYTES PERCENT AUTO 15.3 % (15.8-45.3); MEAN CORPUSCULAR HEMOGLOBIN 26.4 pg (27.0-33.3); MEAN CORPUSCULAR HGB CONC 32.9 g/dL (28.7-35.3); MEAN CORPUSCULAR VOLUME 80.3 fL (80.8-98.7); MEAN PLATELET VOLUME 8.1 fL (6.7-11.0); MONOCYTES ABSOLUTE AUTO 1.3 x10-3/uL (0.0-1.2); MONOCYTES PERCENT AUTO 13.5 % (5.5-15.2); NEUTROPHILS ABSOLUTE AUTO 6.3 x10-3/uL (1.7-6.9); NEUTROPHILS PERCENT AUTO 67.9 % (40.3-71.8); PLATELET COUNT,PLT 271 x10(3)uL (117-477); RED BLOOD CELL COUNT 3.82 x10(6)uL (3.90-5.90); WHITE BLOOD CELL COUNT,WBC 9.4 x10-3/uL (3.2-10.1)
[2025-03-30 04:48] LABS: A/G RATIO 0.7; ALANINE AMINOTRANSFERASE,ALT 22 U/L (12-36); ALBUMIN 3.2 g/dL (3.2-4.6); ALKALINE PHOSPHATASE 79 IU/L (56-112); ASPARTATE AMNIOTRANSFERASE,AST 24 IU/L (5-25); BILIRUBIN TOTAL 0.3 mg/dL (0.1-1.3); BLOOD UREA NITROGEN,BUN 54 mg/dL (7-18); BUN/CREATININE RATIO 20.8 (9-20); CALCIUM 9.4 mg/dL (8.6-10.2); CARBON DIOXIDE,CO2 32 mmol/L (21-32); CHLORIDE,CL 97 mmol/L (100-110); ESTIMATED GFR 25 mL/min (>60); GLUCOSE RANDOM 204 mg/dL (80-116); POTASSIUM,K 5.6 mmol/L (3.5-5.3); PROTEIN TOTAL,TP 7.8 g/dL (6.0-8.0); SODIUM,NA 131 mmol/L (135-145)
[2025-03-30 04:52] LABS: CREATININE 2.6 mg/dL (0.70-1.30); EST CRCL DRUG DOSING (CG) 24.93 mL/min
[2025-03-30 04:55] LABS: C-REACTIVE PROTEIN 1.35 mg/dL (<0.50)
[2025-03-30 05:01] LABS: LACTIC ACID 1.1 mmol/L (0.4-2.0)
[2025-03-30] MEDS ORDERED: Ondansetron 4 MG/2 ML SDV IV PRN (06:45)
[2025-03-30] MEDS ORDERED: Glucagon,Human Recombinant 1 MG Vial IM PRN ×2 (06:45→20:41)
[2025-03-30] MEDS ORDERED: 50% Dextrose in Water 50 ML Syringe IVPUSH PRN ×2 (06:45→20:41)
[2025-03-30] MEDS: Albuterol/Ipratropium 3.0-0.5 MG/3 ML Neb Soln NEB SCH ×2 (08:20→13:34)
[2025-03-30] MEDS: methylPREDNISolone Sodium Succinate 40 MG/1 ML SDV IVPUSH SCH ×3 (08:20→21:27)
[2025-03-30] MEDS: Insulin Lispro 100 Unit/ML 3 ML KwikPen SUBCUT SCH (08:40)
[2025-03-30] MEDS ORDERED: Nitroglycerin 0.4 MG Tab.SL SL PRN (14:55)
[2025-03-30] MEDS ORDERED: Albuterol 6.7 GM Inhaler INH PRN (14:55)
[2025-03-30] MEDS: Pantoprazole 20 MG Tab, Delayed Release PO SCH (15:43)
[2025-03-30] MEDS: Spironolactone 25 MG Tab PO SCH (15:43)
[2025-03-30] MEDS: ClonazePAM 0.5 MG Tab PO PRN (15:43)
[2025-03-30] MEDS: cefTRIAXone 2 GM Vial IVPUSH SCH (15:44)
[2025-03-30] MEDS: Doxycycline 100 MG in Sodium Chloride 0.9% 100 ML IV SCH (15:55)
[2025-03-30 16:30] LABS: BILIRUBIN,URINE NEGATIVE (NEGATIVE); GLUCOSE,URINE >1000 mg/dL (NORMAL); KETONES,URINE NEGATIVE (NEGATIVE); LEUKOCYTE ESTERASE,URINE NEGATIVE (NEGATIVE); NITRITE,URINE NEGATIVE (NEGATIVE); OCCULT BLOOD,URINE NEGATIVE (NEGATIVE); PROTEIN,URINE NEGATIVE (NEGATIVE); UROBILINOGEN,URINE NORMAL (NEGATIVE)
[2025-03-30 16:36] LABS: APPEARANCE,URINE CLEAR (CLEAR); COLOR,URINE YELLOW (YELLOW)
[2025-03-30 16:37] LABS: BACTERIA,URINE FEW (NS); RBC,URINE 0-5 (0-5); SQUAMOUS EPITHELIAL CELLS,UR OCCASIONAL (NS,R,O); WBC,URINE 0-5 (0-5)
[2025-03-30] MEDS: Gabapentin 300 MG Cap PO SCH (17:28)
[2025-03-30 19:18] LABS: POTASSIUM,K 5.6 mmol/L (3.5-5.3)
[2025-03-30] MEDS: Insulin Lispro 100 Unit/ML 3 ML KwikPen SUBCUT ONE (21:04)
[2025-03-30] MEDS: Carvedilol 12.5 MG Tab PO SCH (21:18)
[2025-03-30] MEDS: Loratadine 10 MG Tab PO SCH (21:18)
[2025-03-30] MEDS: Formoterol/Mometasone 200-5 MCG 8.8 GM Inhaler INH SCH (21:19)
[2025-03-30] MEDS: Rosuvastatin 20 MG Tab PO SCH (21:19)
[2025-03-30] MEDS: Apixaban 5 MG Tab PO SCH (21:20)
[2025-03-30] MEDS: Pramipexole 0.25 MG Tab PO SCH (21:20)
[2025-03-30] MEDS: Melatonin 3 MG Tab PO SCH (21:20)
[2025-03-30] MEDS: Fenofibrate Nanocrystallized 145 MG Tab PO SCH (21:22)
[2025-03-30] MEDS: Insulin Glargine,Human Rec. Analog 100 Units/ML 3 ML Pen SUBCUT SCH (21:23)
[2025-03-30] MEDS: Furosemide 40 MG/4 ML VIAL IVPUSH SCH (21:26)
[2025-03-30] MEDS: LORazepam 1 MG Tab PO ONE (23:20)
[2025-03-31 07:24] LABS: HEMATOCRIT 34.3 % (38.3-50.1); HEMOGLOBIN 11.4 g/dL (12.9-17.7); MEAN CORPUSCULAR HEMOGLOBIN 26.5 pg (27.0-33.3); MEAN CORPUSCULAR HGB CONC 33.1 g/dL (28.7-35.3); MEAN CORPUSCULAR VOLUME 80.1 fL (80.8-98.7); MEAN PLATELET VOLUME 7.9 fL (6.7-11.0); PLATELET COUNT,PLT 353 x10(3)uL (117-477); RED BLOOD CELL COUNT 4.28 x10(6)uL (3.90-5.90); RED CELL DISTRIBUTION WIDTH 16.1 % (12.4-15.0); WHITE BLOOD CELL COUNT,WBC 16.3 x10-3/uL (3.2-10.1)
[2025-03-31 07:33] LABS: A/G RATIO 0.7; ALANINE AMINOTRANSFERASE,ALT 18 U/L (12-36); ALBUMIN 3.2 g/dL (3.2-4.6); ALKALINE PHOSPHATASE 64 IU/L (56-112); ASPARTATE AMNIOTRANSFERASE,AST 14 IU/L (5-25); BILIRUBIN TOTAL 0.3 mg/dL (0.1-1.3); BLOOD UREA NITROGEN,BUN 62 mg/dL (7-18); CALCIUM 9.7 mg/dL (8.6-10.2); CARBON DIOXIDE,CO2 29 mmol/L (21-32); CHLORIDE,CL 97 mmol/L (100-110); ESTIMATED GFR 24 mL/min (>60); GLUCOSE RANDOM 382 mg/dL (80-116); POTASSIUM,K 5.1 mmol/L (3.5-5.3); PROTEIN TOTAL,TP 8.1 g/dL (6.0-8.0); SODIUM,NA 131 mmol/L (135-145)
[2025-03-31 07:34] LABS: CREATININE 2.7 mg/dL (0.70-1.30)
[2025-03-31 07:35] LABS: BAND PERCENT MAN 3 % (0-6); LYMPHOCYTES PERCENT MAN 4 % (13-37); MONOCYTES PERCENT MAN 4 % (4-12); SEG NEUTROPHILS PERCENT MAN 89 % (46-82)
[2025-03-31] MEDS: Amiodarone 200 MG Tab PO SCH (08:24)
[2025-03-31] MEDS: Aspirin 81 MG Tab.Chew PO SCH (08:24)
[2025-03-31] MEDS: Ferrous Sulfate 325 MG Tab PO SCH (08:25)
[2025-03-31] MEDS: Isosorbide Mononitrate 30 MG Tab.ER PO SCH (08:25)
[2025-03-31] MEDS: Fish Oil/Omega-3 Fatty Acids 1 Gm Cap PO SCH (08:25)
[2025-03-31] MEDS: Vitamin B Complex with Vitamin C Tab PO SCH (09:51)
[2025-03-31] MEDS: Insulin Lispro 100 Unit/ML 3 ML KwikPen SUBCUT ONE ×3 (12:12→21:28)
[2025-03-31] MEDS: Acetaminophen 325 MG Tab PO PRN (16:12)
[2025-03-31] MEDS: methylPREDNISolone Sodium Succinate 40 MG/1 ML SDV IVPUSH SCH (20:59)
[2025-03-31] MEDS: Insulin Glargine,Human Rec. Analog 100 Units/ML 3 ML Pen SUBCUT SCH (21:02)
[2025-03-31] MEDS ORDERED: Glucagon,Human Recombinant 1 MG Vial IM PRN (21:05)
[2025-03-31] MEDS ORDERED: 50% Dextrose in Water 50 ML Syringe IVPUSH PRN (21:05)
[2025-04-01 06:35] LABS: HEMATOCRIT 33.4 % (38.3-50.1); HEMOGLOBIN 11.1 g/dL (12.9-17.7); MEAN CORPUSCULAR HEMOGLOBIN 26.8 pg (27.0-33.3); MEAN CORPUSCULAR HGB CONC 33.3 g/dL (28.7-35.3); MEAN CORPUSCULAR VOLUME 80.5 fL (80.8-98.7); PLATELET COUNT,PLT 340 x10(3)uL (117-477); RED BLOOD CELL COUNT 4.15 x10(6)uL (3.90-5.90); RED CELL DISTRIBUTION WIDTH 16.2 % (12.4-15.0); WHITE BLOOD CELL COUNT,WBC 20.4 x10-3/uL (3.2-10.1)
[2025-04-01 06:42] LABS: BLOOD UREA NITROGEN,BUN 76 mg/dL (7-18); BUN/CREATININE RATIO 26.2 (9-20); CALCIUM 9.3 mg/dL (8.6-10.2); CARBON DIOXIDE,CO2 30 mmol/L (21-32); CHLORIDE,CL 97 mmol/L (100-110); EST CRCL DRUG DOSING (CG) 22.35 mL/min; ESTIMATED GFR 22 mL/min (>60); POTASSIUM,K 5.1 mmol/L (3.5-5.3); SODIUM,NA 132 mmol/L (135-145)
[2025-04-01 06:48] LABS: CREATININE 2.9 mg/dL (0.70-1.30); GLUCOSE RANDOM 467 mg/dL (80-116)
[2025-04-01 07:10] LABS: LYMPHOCYTES PERCENT MAN 3 % (13-37); MONOCYTES PERCENT MAN 4 % (4-12); SEG NEUTROPHILS PERCENT MAN 93 % (46-82)
[2025-04-01 07:11] LABS: ANISOCYTOSIS FEW
[2025-04-01] MEDS ORDERED: Insulin Glargine,Human Rec. Analog 100 Units/ML 3 ML Pen SUBCUT SCH (07:59)
[2025-04-01] MEDS: Furosemide 40 MG/4 ML VIAL IVPUSH SCH (08:45)
[2025-04-01] MEDS ORDERED: 50% Dextrose in Water 50 ML Syringe IVPUSH PRN (09:12)
[2025-04-01] MEDS ORDERED: Glucagon,Human Recombinant 1 MG Vial IM PRN (09:12)
[2025-04-01] MEDS: Insulin Lispro 100 Unit/ML 3 ML KwikPen SUBCUT ONE ×2 (09:27→13:05)
[2025-04-01] MEDS: Insulin Glargine,Human Rec. Analog 100 Units/ML 3 ML Pen SUBCUT SCH (20:18)
[2025-04-02 06:23] LABS: HEMATOCRIT 32.9 % (38.3-50.1); HEMOGLOBIN 10.8 g/dL (12.9-17.7); MEAN CORPUSCULAR HEMOGLOBIN 26.3 pg (27.0-33.3); MEAN CORPUSCULAR HGB CONC 32.9 g/dL (28.7-35.3); MEAN CORPUSCULAR VOLUME 79.7 fL (80.8-98.7); MEAN PLATELET VOLUME 8.1 fL (6.7-11.0); PLATELET COUNT,PLT 314 x10(3)uL (117-477); RED BLOOD CELL COUNT 4.12 x10(6)uL (3.90-5.90); RED CELL DISTRIBUTION WIDTH 16.3 % (12.4-15.0); WHITE BLOOD CELL COUNT,WBC 18.9 x10-3/uL (3.2-10.1)
[2025-04-02 06:28] LABS: BLOOD UREA NITROGEN,BUN 93 mg/dL (7-18); BUN/CREATININE RATIO 34.4 (9-20); CALCIUM 9.4 mg/dL (8.6-10.2); CARBON DIOXIDE,CO2 29 mmol/L (21-32); CHLORIDE,CL 99 mmol/L (100-110); ESTIMATED GFR 24 mL/min (>60); GLUCOSE RANDOM 373 mg/dL (80-116); POTASSIUM,K 5.1 mmol/L (3.5-5.3); SODIUM,NA 133 mmol/L (135-145)
[2025-04-02 06:35] LABS: CREATININE 2.7 mg/dL (0.70-1.30)
[2025-04-02 06:43] LABS: ANISOCYTOSIS FEW; BAND PERCENT MAN 1 % (0-6); LYMPHOCYTES PERCENT MAN 2 % (13-37); MONOCYTES PERCENT MAN 4 % (4-12); SEG NEUTROPHILS PERCENT MAN 93 % (46-82)
[2025-04-02] MEDS: Furosemide 40 MG/4 ML VIAL IVPUSH SCH (10:42)
[2025-04-02] MEDS: Insulin Lispro 100 Unit/ML 3 ML KwikPen SUBCUT SCH (11:55)
[2025-04-02] MEDS: Insulin Lispro 100 Unit/ML 3 ML KwikPen SUBCUT ONE (11:56)
[2025-04-02 15:39] LABS: STREPTOCOCCUS PNEUMONIAE AG,UR Negative (Negative)
[2025-04-02 21:02] LABS: CREATININE,URINE - PER VOLUME 36 mg/dL; HOURS COLLECTED Random hr; TOTAL VOLUME Random mL; URINE UREA NITROGEN - MG/DL 380 mg/dL
[2025-04-02 22:28] LABS: LEGIONELLA PNEUMOPHILA AG,URN Negative (Negative)
[2025-04-03 06:09] LABS: HEMATOCRIT 33.8 % (38.3-50.1); HEMOGLOBIN 11.1 g/dL (12.9-17.7); MEAN CORPUSCULAR HEMOGLOBIN 26.1 pg (27.0-33.3); MEAN CORPUSCULAR HGB CONC 32.9 g/dL (28.7-35.3); MEAN CORPUSCULAR VOLUME 79.3 fL (80.8-98.7); MEAN PLATELET VOLUME 8.1 fL (6.7-11.0); PLATELET COUNT,PLT 324 x10(3)uL (117-477); RED BLOOD CELL COUNT 4.26 x10(6)uL (3.90-5.90); RED CELL DISTRIBUTION WIDTH 16.7 % (12.4-15.0); WHITE BLOOD CELL COUNT,WBC 17.8 x10-3/uL (3.2-10.1)
[2025-04-03 06:18] LABS: BLOOD UREA NITROGEN,BUN 94 mg/dL (7-18); BUN/CREATININE RATIO 36.2 (9-20); CARBON DIOXIDE,CO2 32 mmol/L (21-32); CHLORIDE,CL 99 mmol/L (100-110); EST CRCL DRUG DOSING (CG) 24.93 mL/min; ESTIMATED GFR 25 mL/min (>60); GLUCOSE RANDOM 312 mg/dL (80-116); POTASSIUM,K 5.1 mmol/L (3.5-5.3); SODIUM,NA 136 mmol/L (135-145)
[2025-04-03 06:23] LABS: CREATININE 2.6 mg/dL (0.70-1.30)
[2025-04-03 06:24] LABS: ANISOCYTOSIS FEW; BAND PERCENT MAN 4 % (0-6); LYMPHOCYTES PERCENT MAN 8 % (13-37); MONOCYTES PERCENT MAN 4 % (4-12); SEG NEUTROPHILS PERCENT MAN 84 % (46-82)
[2025-04-03] MEDS ORDERED: Glucagon,Human Recombinant 1 MG Vial IM PRN (11:40)
[2025-04-03] MEDS ORDERED: 50% Dextrose in Water 50 ML Syringe IVPUSH PRN (11:40)
[2025-04-03] MEDS: Insulin Lispro 100 Unit/ML 3 ML KwikPen SUBCUT ONE ×2 (12:04→14:53)
[2025-04-03] MEDS: Insulin Lispro 100 Unit/ML 3 ML KwikPen SUBCUT STA (14:09)
[2025-04-03 14:11] VITALS: BP 139/50
[2025-04-03 15:11] VITALS: PULSE 66
[2025-04-03] MEDS ORDERED: predniSONE 20 MG Tab PO SCH (21:00)
== END 2025-04-03 15:30 | disposition home health service (06) | DRG 193 ==
LOC: FB.ED 03:48 → FB.MS 06:45
PROVIDERS: ADMIT Family Medicine; ATTEND Internal Medicine
PROC: 5A0935A Assistance with Respiratory Ventilation, Less than 24 Consecutive Hours, High Flow/Velocity Cannula (ICD-10-PCS; principal; 2025-03-30)
DX: J18.9 Pneumonia, unspecified organism (principal); I50.43 Acute on chronic combined systolic (congestive) and diastolic (congestive) heart failure; I50.9 Heart failure, unspecified; I13.0 Hypertensive heart and chronic kidney disease with heart failure and stage 1 through stage 4 chronic kidney disease, or unspecified chronic kidney disease; E66.01 Morbid (severe) obesity due to excess calories; Z79.51 Long term (current) use of inhaled steroids; Z79.01 Long term (current) use of anticoagulants; J44.1 Chronic obstructive pulmonary disease with (acute) exacerbation; J44.0 Chronic obstructive pulmonary disease with (acute) lower respiratory infection; E87.1 Hypo-osmolality and hyponatremia; I48.91 Unspecified atrial fibrillation; N17.9 Acute kidney failure, unspecified; J96.11 Chronic respiratory failure with hypoxia; Z68.41 Body mass index [BMI] 40.0-44.9, adult; Z66 Do not resuscitate; E11.42 Type 2 diabetes mellitus with diabetic polyneuropathy; E11.22 Type 2 diabetes mellitus with diabetic chronic kidney disease; I25.10 Atherosclerotic heart disease of native coronary artery without angina pectoris; G47.33 Obstructive sleep apnea (adult) (pediatric); H91.90 Unspecified hearing loss, unspecified ear; H54.7 Unspecified visual loss; E78.00 Pure hypercholesterolemia, unspecified; I25.2 Old myocardial infarction; N40.0 Benign prostatic hyperplasia without lower urinary tract symptoms; M19.90 Unspecified osteoarthritis, unspecified site; M54.9 Dorsalgia, unspecified; G89.29 Other chronic pain; G43.909 Migraine, unspecified, not intractable, without status migrainosus; K21.9 Gastro-esophageal reflux disease without esophagitis; E11.40 Type 2 diabetes mellitus with diabetic neuropathy, unspecified; F32.A Depression, unspecified; R53.81 Other malaise; I48.0 Paroxysmal atrial fibrillation; N18.31 Chronic kidney disease, stage 3a; E66.813 Obesity, class 3; E87.5 Hyperkalemia; Z96.649 Presence of unspecified artificial hip joint; Z95.5 Presence of coronary angioplasty implant and graft; Z99.81 Dependence on supplemental oxygen; Z79.82 Long term (current) use of aspirin; Z98.49 Cataract extraction status, unspecified eye; Z79.4 Long term (current) use of insulin; Z90.49 Acquired absence of other specified parts of digestive tract; Z98.890 Other specified postprocedural states; Z79.899 Other long term (current) drug therapy; Z87.891 Personal history of nicotine dependence; Z95.1 Presence of aortocoronary bypass graft
CPT/HCPCS: 36415; 71045; 80053; 83605; 83880; 84484; 85025; 86140; 87040 ×2; 93005; 96374; 99285; J1938; U0002; 73502-LT; 76770; 80048; 81001; 82570; 82947; 84132; 84295; 84540; 87070; 87205; 87449; 87899; 93010; 93306; 94150; 94640; 97110-GO; 97161-GP; 97165-GO; 97535-GO; 99222; 99232; 99238; A9270-GY; J0696; J1815; J1815-GY; J2919; J3490

== ENCOUNTER 2025-06-06 13:08 | Emergency (ER) | payer MEDICARE, OTHER ==
[2025-06-06] MEDS: Morphine 10 MG/ML SDV IM ONE (13:37)
[2025-06-06] MEDS: hydrOXYzine HCl 50 MG/ML SDV IM ONE (13:38)
[2025-06-06 18:01] VITALS: BP 109/35; PULSE 57
== END 2025-06-06 15:18 | disposition home or self-care (01) ==
LOC: FB.ED 13:08
DX: M16.0 Bilateral primary osteoarthritis of hip (principal); I48.91 Unspecified atrial fibrillation; I11.0 Hypertensive heart disease with heart failure; I50.9 Heart failure, unspecified; E11.40 Type 2 diabetes mellitus with diabetic neuropathy, unspecified; I25.2 Old myocardial infarction; Z95.5 Presence of coronary angioplasty implant and graft; E78.00 Pure hypercholesterolemia, unspecified; Z90.49 Acquired absence of other specified parts of digestive tract; Z79.01 Long term (current) use of anticoagulants; Z79.899 Other long term (current) drug therapy; Z79.82 Long term (current) use of aspirin; Z79.51 Long term (current) use of inhaled steroids; Z79.4 Long term (current) use of insulin
CPT/HCPCS: 73502; 96372; 99284; J2272; J3410

== ENCOUNTER 2025-08-04 10:58 | Inpatient (IN) | payer MEDICARE, OTHER ==
[2025-08-04] MEDS ORDERED: Sodium Chloride 0.9% 10 ML Syringe FLUSH PRN (11:07)
[2025-08-04 11:41] LABS: BASOPHILS ABSOLUTE AUTO 0.1 x10-3/uL (0.0-0.3); BASOPHILS PERCENT AUTO 1.0 % (0.3-3.8); EOSINOPHILS ABSOLUTE AUTO 0.2 x10-3/uL (0.0-0.6); EOSINOPHILS PERCENT AUTO 2.3 % (0.1-6.8); LYMPHOCYTES ABSOLUTE AUTO 1.0 x10-3/uL (0.5-4.5); LYMPHOCYTES PERCENT AUTO 9.2 % (15.8-45.3); MEAN PLATELET VOLUME 8.3 fL (6.7-11.0); MONOCYTES ABSOLUTE AUTO 1.3 x10-3/uL (0.0-1.2); MONOCYTES PERCENT AUTO 12.4 % (5.5-15.2); NEUTROPHILS ABSOLUTE AUTO 7.9 x10-3/uL (1.7-6.9); NEUTROPHILS PERCENT AUTO 75.1 % (40.3-71.8); PLATELET COUNT,PLT 229 x10(3)uL (117-477); RED BLOOD CELL COUNT 3.65 x10(6)uL (3.90-5.90); RED CELL DISTRIBUTION WIDTH 15.2 % (12.4-15.0); WHITE BLOOD CELL COUNT,WBC 10.5 x10-3/uL (3.2-10.1)
[2025-08-04 11:54] LABS: A/G RATIO 0.9; ALANINE AMINOTRANSFERASE,ALT 27 U/L (12-36); ASPARTATE AMNIOTRANSFERASE,AST 22 IU/L (5-25); BILIRUBIN TOTAL 0.4 mg/dL (0.1-1.3); BLOOD UREA NITROGEN,BUN 68 mg/dL (7-18); CARBON DIOXIDE,CO2 35 mmol/L (21-32); CHLORIDE,CL 103 mmol/L (100-110); ESTIMATED GFR 22 mL/min (>60); GLUCOSE RANDOM 153 mg/dL (80-116); PROTEIN TOTAL,TP 7.1 g/dL (6.0-8.0); SODIUM,NA 138 mmol/L (135-145)
[2025-08-04 11:58] LABS: POTASSIUM,K 6.5 mmol/L (3.5-5.3)
[2025-08-04 11:59] LABS: BASE EXCESS VENOUS,POC 6 mmol/L (-2 - 3+); PCO2 VENOUS,POC 52 mmHg (41-51); PH VENOUS,POC 7.40 pH Units (7.32-7.43)
[2025-08-04 11:59] LABS: CREATININE 2.9 mg/dL (0.70-1.30)
[2025-08-04 12:03] LABS: PRO B-TYPE NATRIUR PEPT,BNPPRO 383.0 pg/mL (<=450)
[2025-08-04] MEDS ORDERED: 50% Dextrose in Water 50 ML Syringe IVPUSH PRN ×2 (12:07→18:14)
[2025-08-04] MEDS: Albuterol 0.083% 2.5 MG/3 ML Neb Soln NEB ONE (12:23)
[2025-08-04] MEDS: 50% Dextrose in Water 50 ML Syringe IVPUSH ONE (12:23)
[2025-08-04] MEDS: Insulin Regular, Human 100 Units/ML 10 ML Vial IV ONE (12:27)
[2025-08-04] MEDS ORDERED: Nitroglycerin 0.4 MG Tab.SL SL PRN (18:14)
[2025-08-04] MEDS ORDERED: Aluminum Hydroxide/Magnesium Hydroxide Susp 30 ML Cup PO PRN (18:14)
[2025-08-04] MEDS ORDERED: guaiFENesin 100 MG/5 ML Soln 5 ML UD Cup PO PRN (18:14)
[2025-08-04] MEDS ORDERED: Magnesium Hydroxide 400 MG/5 ML Susp 30 ML Cup PO PRN (18:14)
[2025-08-04] MEDS: Insulin Glargine,Human Rec. Analog 100 Units/ML 3 ML Pen SUBCUT SCH (20:42)
[2025-08-04] MEDS: Budesonide 0.5 MG/2 ML Neb Susp INH SCH (20:48)
[2025-08-04] MEDS: Nystatin Topical Powder 15 GM Bottle TOP SCH (20:48)
[2025-08-04] MEDS: Fluticasone NASAL Spray 16 GM Bottle NASBOTH SCH (20:48)
[2025-08-04] MEDS: methylPREDNISolone Sodium Succinate 40 MG/1 ML SDV IVPUSH SCH (20:59)
[2025-08-04] MEDS ORDERED: Non-Formulary Medication 1 Each (Fenofibrate,Micronized [Fenofibrate] 134 MG Cap) PO SCH (21:00)
[2025-08-04] MEDS ORDERED: Non-Formulary Medication 1 Each (Formoterol [Perforomist] 20 MCG/2 ML Neb) INH SCH (21:00)
[2025-08-04 22:12] LABS: GLUCOSE,URINE NORMAL (NORMAL); OCCULT BLOOD,URINE LARGE (NEGATIVE)
[2025-08-04 22:30] LABS: APPEARANCE,URINE SLIGHTLY CLOUDY (CLEAR); SQUAMOUS EPITHELIAL CELLS,UR OCCASIONAL (NS,R,O)
[2025-08-05] MEDS ORDERED: Albuterol 0.083% 2.5 MG/3 ML Neb Soln NEB SCH (00:15)
[2025-08-05] MEDS: Albuterol 0.083% 2.5 MG/3 ML Neb Soln NEB PRN (00:34)
[2025-08-05] MEDS: Levofloxacin/Dextrose 5%-Water 500 MG in Premix Bag 1 BAG IV ONE (01:36)
[2025-08-05] MEDS: Pantoprazole 20 MG Tab, Delayed Release PO SCH (06:42)
[2025-08-05 06:49] LABS: MEAN PLATELET VOLUME 8.3 fL (6.7-11.0); PLATELET COUNT,PLT 270 x10(3)uL (117-477); RED BLOOD CELL COUNT 3.92 x10(6)uL (3.90-5.90); RED CELL DISTRIBUTION WIDTH 15.4 % (12.4-15.0); WHITE BLOOD CELL COUNT,WBC 10.0 x10-3/uL (3.2-10.1)
[2025-08-05 07:04] LABS: A/G RATIO 0.8; ALANINE AMINOTRANSFERASE,ALT 26 U/L (12-36); ASPARTATE AMNIOTRANSFERASE,AST 19 IU/L (5-25); BILIRUBIN TOTAL 0.3 mg/dL (0.1-1.3); BLOOD UREA NITROGEN,BUN 70 mg/dL (7-18); CARBON DIOXIDE,CO2 32 mmol/L (21-32); CHLORIDE,CL 102 mmol/L (100-110); EST CRCL DRUG DOSING (CG) 23.64 mL/min; ESTIMATED GFR 24 mL/min (>60); GLUCOSE RANDOM 235 mg/dL (80-116); PROTEIN TOTAL,TP 7.8 g/dL (6.0-8.0); SODIUM,NA 137 mmol/L (135-145)
[2025-08-05 07:08] LABS: CREATININE 2.7 mg/dL (0.70-1.30); POTASSIUM,K 6.3 mmol/L (3.5-5.3)
[2025-08-05 07:15] LABS: BAND PERCENT MAN 4 % (0-6); LYMPHOCYTES PERCENT MAN 5 % (13-37); MONOCYTES PERCENT MAN 2 % (4-12); SEG NEUTROPHILS PERCENT MAN 89 % (46-82)
[2025-08-05] MEDS: Revefenacin 175 MCG/3 ML Neb Soln INH SCH (08:33)
[2025-08-05] MEDS: Vitamin B Complex with Vitamin C Tab PO SCH (08:37)
[2025-08-05] MEDS: Insulin Lispro 100 Unit/ML 3 ML KwikPen SUBCUT SCH ×3 (08:58→12:32)
[2025-08-05] MEDS ORDERED: Non-Formulary Medication 1 Each (Cetirizine [Zyrtec] 10 MG Tablet) PO SCH (09:00)
[2025-08-05] MEDS: Levofloxacin/Dextrose 5%-Water 250 MG in Premix Bag 1 BAG IV ONE (16:35)
[2025-08-05] MEDS ORDERED: Levofloxacin/Dextrose 5%-Water 250 MG in Premix Bag 1 BAG IV SCH (21:00)
[2025-08-06 07:09] LABS: MEAN PLATELET VOLUME 8.3 fL (6.7-11.0); PLATELET COUNT,PLT 260 x10(3)uL (117-477); RED BLOOD CELL COUNT 3.82 x10(6)uL (3.90-5.90); RED CELL DISTRIBUTION WIDTH 15.3 % (12.4-15.0); WHITE BLOOD CELL COUNT,WBC 17.1 x10-3/uL (3.2-10.1)
[2025-08-06 07:15] LABS: BLOOD UREA NITROGEN,BUN 73 mg/dL (7-18); CARBON DIOXIDE,CO2 32 mmol/L (21-32); CHLORIDE,CL 97 mmol/L (100-110); EST CRCL DRUG DOSING (CG) 23.64 mL/min; ESTIMATED GFR 24 mL/min (>60); GLUCOSE RANDOM 262 mg/dL (80-116); POTASSIUM,K 4.9 mmol/L (3.5-5.3); SODIUM,NA 136 mmol/L (135-145)
[2025-08-06 07:25] LABS: CREATININE 2.7 mg/dL (0.70-1.30)
[2025-08-06 07:40] LABS: LYMPHOCYTES PERCENT MAN 2 % (13-37); MONOCYTES PERCENT MAN 4 % (4-12); SEG NEUTROPHILS PERCENT MAN 94 % (46-82)
[2025-08-06] MEDS: methylPREDNISolone Sodium Succinate 40 MG/1 ML SDV IVPUSH SCH (08:54)
[2025-08-06 21:40] LABS: STREPTOCOCCUS PNEUMONIAE AG,UR Negative (Negative)
[2025-08-07] MEDS: Levofloxacin/Dextrose 5%-Water 750 MG in Premix Bag 1 BAG IV SCH (06:01)
[2025-08-07 06:31] LABS: MEAN PLATELET VOLUME 8.6 fL (6.7-11.0); PLATELET COUNT,PLT 241 x10(3)uL (117-477); RED BLOOD CELL COUNT 3.89 x10(6)uL (3.90-5.90); RED CELL DISTRIBUTION WIDTH 15.3 % (12.4-15.0); WHITE BLOOD CELL COUNT,WBC 15.9 x10-3/uL (3.2-10.1)
[2025-08-07 06:45] LABS: BLOOD UREA NITROGEN,BUN 80 mg/dL (7-18); CARBON DIOXIDE,CO2 32 mmol/L (21-32); CHLORIDE,CL 97 mmol/L (100-110); EST CRCL DRUG DOSING (CG) 24.55 mL/min; ESTIMATED GFR 25 mL/min (>60); GLUCOSE RANDOM 282 mg/dL (80-116); POTASSIUM,K 4.6 mmol/L (3.5-5.3); SODIUM,NA 136 mmol/L (135-145)
[2025-08-07 06:55] LABS: CREATININE 2.6 mg/dL (0.70-1.30)
[2025-08-07 06:57] LABS: LYMPHOCYTES PERCENT MAN 5 % (13-37); MONOCYTES PERCENT MAN 3 % (4-12); SEG NEUTROPHILS PERCENT MAN 92 % (46-82)
[2025-08-07 09:05] VITALS: BP 144/41; PULSE 68
[2025-08-07 09:24] LABS: CREATININE,URINE - PER VOLUME 80 mg/dL; HOURS COLLECTED Random hr; URINE UREA NITROGEN - MG/DL 664 mg/dL
[2025-08-07] MEDS: Insulin Lispro 100 Unit/ML 3 ML KwikPen SUBCUT ONE (09:47)
[2025-08-07 18:21] LABS: LEGIONELLA PNEUMOPHILA AG,URN Negative (Negative)
== END 2025-08-07 12:30 | disposition home health service (06) | DRG 190 ==
LOC: FB.ED 10:58 → FB.MS 12:49 → FB.ED 13:16
PROVIDERS: ADMIT Internal Medicine; ATTEND Internal Medicine
DX: J96.21 Acute and chronic respiratory failure with hypoxia (principal); J96.22 Acute and chronic respiratory failure with hypercapnia; J44.1 Chronic obstructive pulmonary disease with (acute) exacerbation; J18.9 Pneumonia, unspecified organism; I11.0 Hypertensive heart disease with heart failure; I13.0 Hypertensive heart and chronic kidney disease with heart failure and stage 1 through stage 4 chronic kidney disease, or unspecified chronic kidney disease; Z68.41 Body mass index [BMI] 40.0-44.9, adult; N17.9 Acute kidney failure, unspecified; J44.9 Chronic obstructive pulmonary disease, unspecified; N18.4 Chronic kidney disease, stage 4 (severe); J96.11 Chronic respiratory failure with hypoxia; J44.0 Chronic obstructive pulmonary disease with (acute) lower respiratory infection; Z66 Do not resuscitate; Z99.81 Dependence on supplemental oxygen; H91.90 Unspecified hearing loss, unspecified ear; H54.7 Unspecified visual loss; I48.91 Unspecified atrial fibrillation; I50.9 Heart failure, unspecified; E78.00 Pure hypercholesterolemia, unspecified; K21.9 Gastro-esophageal reflux disease without esophagitis; N40.0 Benign prostatic hyperplasia without lower urinary tract symptoms; M19.90 Unspecified osteoarthritis, unspecified site; G43.909 Migraine, unspecified, not intractable, without status migrainosus; E11.40 Type 2 diabetes mellitus with diabetic neuropathy, unspecified; E66.9 Obesity, unspecified; E87.5 Hyperkalemia; G47.33 Obstructive sleep apnea (adult) (pediatric); E11.22 Type 2 diabetes mellitus with diabetic chronic kidney disease; N32.89 Other specified disorders of bladder; Z98.49 Cataract extraction status, unspecified eye; Z79.01 Long term (current) use of anticoagulants; Z79.82 Long term (current) use of aspirin; Z79.52 Long term (current) use of systemic steroids; Z79.899 Other long term (current) drug therapy; Z79.51 Long term (current) use of inhaled steroids; Z79.4 Long term (current) use of insulin; I25.2 Old myocardial infarction; Z95.5 Presence of coronary angioplasty implant and graft; Z87.81 Personal history of (healed) traumatic fracture; Z90.89 Acquired absence of other organs; Z90.49 Acquired absence of other specified parts of digestive tract; Z98.890 Other specified postprocedural states; Z87.891 Personal history of nicotine dependence
CPT/HCPCS: 36415; 71045; 71045-26; 71250; 76770; 76770-26; 80048; 80053; 81001; 82570; 82947; 83605; 83735; 83880; 84132; 84484; 84540; 85025; 86140; 87040; 87070; 87205; 87449; 87486; 87581; 87633; 87798; 87899; 93005; 93010; 94640; 96374; 97110-GP; 97116-GP; 97161-GP; 97165-GO; 97530-GO; 99223; 99232; 99238; 99284; 99285-25; A9270-GY; J1815-GY; J1956; J2919; J7030; J7512; J7677

== ENCOUNTER 2025-08-13 11:23 | Emergency (ER) | payer MEDICARE, OTHER ==
[2025-08-13 11:33] VITALS: BP 121/34; PULSE 69
== END 2025-08-13 14:39 | disposition home or self-care (01) ==
LOC: FB.ED 11:23
DX: M16.12 Unilateral primary osteoarthritis, left hip (principal); M16.11 Unilateral primary osteoarthritis, right hip; M25.572 Pain in left ankle and joints of left foot; G89.29 Other chronic pain; I11.0 Hypertensive heart disease with heart failure; I50.9 Heart failure, unspecified; K21.9 Gastro-esophageal reflux disease without esophagitis; E66.9 Obesity, unspecified; E11.9 Type 2 diabetes mellitus without complications; Z79.4 Long term (current) use of insulin; Z79.82 Long term (current) use of aspirin; Z79.899 Other long term (current) drug therapy; Z90.49 Acquired absence of other specified parts of digestive tract; Z87.891 Personal history of nicotine dependence
CPT/HCPCS: 73502-26-LT; 73502-LT; 73610-26-LT; 73610-LT; 99284

== ENCOUNTER 2025-08-19 15:58 | Emergency (ER) | payer MEDICARE, OTHER ==
[2025-08-19 16:30] VITALS: BP 148/61; PULSE 61
[2025-08-19 16:50] LABS: BASOPHILS ABSOLUTE AUTO 0.0 x10-3/uL (0.0-0.3); BASOPHILS PERCENT AUTO 0.3 % (0.3-3.8); EOSINOPHILS ABSOLUTE AUTO 0.3 x10-3/uL (0.0-0.6); EOSINOPHILS PERCENT AUTO 2.7 % (0.1-6.8); LYMPHOCYTES ABSOLUTE AUTO 1.1 x10-3/uL (0.5-4.5); LYMPHOCYTES PERCENT AUTO 8.8 % (15.8-45.3); MEAN PLATELET VOLUME 8.4 fL (6.7-11.0); MONOCYTES ABSOLUTE AUTO 1.1 x10-3/uL (0.0-1.2); MONOCYTES PERCENT AUTO 8.8 % (5.5-15.2); NEUTROPHILS ABSOLUTE AUTO 9.9 x10-3/uL (1.7-6.9); NEUTROPHILS PERCENT AUTO 79.4 % (40.3-71.8); PLATELET COUNT,PLT 212 x10(3)uL (117-477); RED BLOOD CELL COUNT 3.66 x10(6)uL (3.90-5.90); RED CELL DISTRIBUTION WIDTH 15.0 % (12.4-15.0); WHITE BLOOD CELL COUNT,WBC 12.5 x10-3/uL (3.2-10.1)
[2025-08-19 16:53] LABS: GLUCOSE,URINE NORMAL (NORMAL); OCCULT BLOOD,URINE MODERATE (NEGATIVE)
[2025-08-19 16:54] LABS: BASE EXCESS VENOUS,POC 8 mmol/L (-2 - 3+); PCO2 VENOUS,POC 44 mmHg (41-51); PH VENOUS,POC 7.48 pH Units (7.32-7.43)
[2025-08-19 16:54] LABS: APPEARANCE,URINE CLEAR (CLEAR); SQUAMOUS EPITHELIAL CELLS,UR FEW (NS,R,O)
[2025-08-19 17:01] LABS: A/G RATIO 0.9; ALANINE AMINOTRANSFERASE,ALT 33 U/L (12-36); ASPARTATE AMNIOTRANSFERASE,AST 23 IU/L (5-25); BILIRUBIN TOTAL 0.4 mg/dL (0.1-1.3); BLOOD UREA NITROGEN,BUN 51 mg/dL (7-18); CARBON DIOXIDE,CO2 37 mmol/L (21-32); CHLORIDE,CL 100 mmol/L (100-110); ESTIMATED GFR 25 mL/min (>60); GLUCOSE RANDOM 135 mg/dL (80-116); POTASSIUM,K 5.5 mmol/L (3.5-5.3); PROTEIN TOTAL,TP 7.1 g/dL (6.0-8.0); SODIUM,NA 138 mmol/L (135-145)
[2025-08-19 17:02] LABS: CREATININE 2.6 mg/dL (0.70-1.30)
== END 2025-08-19 18:32 | disposition other institution (70) ==
LOC: FB.ED 15:58
DX: G89.29 Other chronic pain (principal); M25.552 Pain in left hip; E87.5 Hyperkalemia; I48.91 Unspecified atrial fibrillation; R60.0 Localized edema; E78.00 Pure hypercholesterolemia, unspecified; I11.0 Hypertensive heart disease with heart failure; I25.2 Old myocardial infarction; I50.9 Heart failure, unspecified; J44.9 Chronic obstructive pulmonary disease, unspecified; K21.9 Gastro-esophageal reflux disease without esophagitis; E11.40 Type 2 diabetes mellitus with diabetic neuropathy, unspecified; E66.9 Obesity, unspecified; Z95.5 Presence of coronary angioplasty implant and graft; Z90.49 Acquired absence of other specified parts of digestive tract; Z79.52 Long term (current) use of systemic steroids; Z79.899 Other long term (current) drug therapy; Z79.51 Long term (current) use of inhaled steroids; Z79.4 Long term (current) use of insulin; Z79.01 Long term (current) use of anticoagulants; Z79.82 Long term (current) use of aspirin; W07.XXXA Fall from chair, initial encounter
CPT/HCPCS: 36415; 71046; 80053; 81001; 83735; 85025; 86140; 99285; A9270-GY

== ENCOUNTER 2025-09-13 22:29 | Emergency (ER) | payer MEDICARE, OTHER ==
[2025-09-13 22:43] VITALS: BP 145/48; PULSE 62
[2025-09-13 23:07] LABS: BASOPHILS ABSOLUTE AUTO 0.1 x10-3/uL (0.0-0.3); BASOPHILS PERCENT AUTO 1.1 % (0.3-3.8); EOSINOPHILS ABSOLUTE AUTO 0.2 x10-3/uL (0.0-0.6); EOSINOPHILS PERCENT AUTO 1.8 % (0.1-6.8); LYMPHOCYTES ABSOLUTE AUTO 1.3 x10-3/uL (0.5-4.5); LYMPHOCYTES PERCENT AUTO 12.5 % (15.8-45.3); MEAN PLATELET VOLUME 8.7 fL (6.7-11.0); MONOCYTES ABSOLUTE AUTO 1.2 x10-3/uL (0.0-1.2); MONOCYTES PERCENT AUTO 11.4 % (5.5-15.2); NEUTROPHILS ABSOLUTE AUTO 7.5 x10-3/uL (1.7-6.9); NEUTROPHILS PERCENT AUTO 73.2 % (40.3-71.8); PLATELET COUNT,PLT 230 x10(3)uL (117-477); RED BLOOD CELL COUNT 3.96 x10(6)uL (3.90-5.90); RED CELL DISTRIBUTION WIDTH 15.1 % (12.4-15.0); WHITE BLOOD CELL COUNT,WBC 10.3 x10-3/uL (3.2-10.1)
[2025-09-13 23:20] LABS: A/G RATIO 0.9; ALANINE AMINOTRANSFERASE,ALT 28 U/L (12-36); ASPARTATE AMNIOTRANSFERASE,AST 22 IU/L (5-25); BILIRUBIN TOTAL 0.3 mg/dL (0.1-1.3); BLOOD UREA NITROGEN,BUN 54 mg/dL (7-18); CARBON DIOXIDE,CO2 34 mmol/L (21-32); CHLORIDE,CL 102 mmol/L (100-110); ESTIMATED GFR 25 mL/min (>60); GLUCOSE RANDOM 141 mg/dL (80-116); POTASSIUM,K 5.1 mmol/L (3.5-5.3); PROTEIN TOTAL,TP 7.0 g/dL (6.0-8.0); SODIUM,NA 141 mmol/L (135-145)
[2025-09-13 23:23] LABS: CREATININE 2.6 mg/dL (0.70-1.30)
[2025-09-13 23:43] LABS: INFLUENZA A NAA NEGATIVE (NEGATIVE); INFLUENZA B NAA NEGATIVE (NEGATIVE); RESPIRATORY SYNCYTIAL VIR NAA NEGATIVE (NEGATIVE)
[2025-09-13 23:44] LABS: CORONAVIRUS COVID-19 NAA NEGATIVE (NEGATIVE)
== END 2025-09-14 00:15 ==
LOC: FB.ED 22:29
DX: R53.1 Weakness (principal); R53.81 Other malaise; I13.0 Hypertensive heart and chronic kidney disease with heart failure and stage 1 through stage 4 chronic kidney disease, or unspecified chronic kidney disease; I50.9 Heart failure, unspecified; N18.9 Chronic kidney disease, unspecified; E11.22 Type 2 diabetes mellitus with diabetic chronic kidney disease; I25.10 Atherosclerotic heart disease of native coronary artery without angina pectoris; I48.91 Unspecified atrial fibrillation; Z79.01 Long term (current) use of anticoagulants; Z79.82 Long term (current) use of aspirin; Z79.899 Other long term (current) drug therapy; Z79.4 Long term (current) use of insulin; Z95.5 Presence of coronary angioplasty implant and graft
CPT/HCPCS: 36415; 80053; 85025; 86140; 87637; 99285